=== PATIENT | female | born 1990 | race African-American/Black ===

== ENCOUNTER 2019-11-23 17:24 | Emergency (ER) | payer OTHER, MEDICARE, SELFPAY ==
[2019-11-23 17:25] VITALS: BP 152/91; PULSE 112; RESP 18; TEMP 36.6; O2SAT 98
--- NOTE | 2019-11-23 17:44 | ED.GENADULT ---
HPI - General Adult General Chief complaint: Unspecified Stated complaint: swollen tonsils Time Seen by Provider: 11/23/19 17:26 Source: patient Mode of arrival: ambulatory Limitations: no limitations History of Present Illness HPI narrative: Patient is a 29-year-old female who presents with 2 days duration of sore throat congestion nonproductive cough with tonsillar hypertrophy able to tolerate secretions and liquids with pain is taken ibuprofen with some improvement patient denies sick contacts. Patient denies vomiting or diarrhea. Patient has used ibuprofen with improvement Related Data Allergies Allergy/AdvReac Type Severity Reaction Status Date / Time Penicillins Allergy Mild Unknown Verified 11/23/19 18:13 Review of Systems Review of Systems: All systems reviewed & are unremarkable except as noted in HPI and below PMFSH Past Medical History Medical History Anxiety Anxiety with depression Asthma Depression Morbid obesity Psychiatric pseudoseizure Seizures Surgical History Surgical History H/O section Social History Social History Gender identity (if verbalized by the patient): Female Exam Narrative: Exam Narrative: GENERAL: Ill l-appearing, obese, and in no acute distress. HEAD: Normocephalic, atraumatic. EYES: PERRLA and EOMI. ENT: Nares clear, no rhinorrhea or epistaxis. Mucous membranes moist. Oropharynx with tonsillar hypertrophy exudate no other lesions. Uvula midline. No trismus or drooling NECK: Supple. Anterior adenopathy noted CHEST: Clear to auscultation. No respiratory distress. No wheezes rales or rhonchi HEART: Regular rate and rhythm. No murmur heard. EXTREMITIES: Normal range of motion. No edema. SKIN: Warm, dry, no rash. NEURO: No focal deficits. Alert and oriented x3. Cranial nerves II through XII grossly intact PSYCH: Normal mood and affect. Course Course Emergency Course: Patient in the room at this time feeling better afebrile nontoxic-appearing tolerating p.o. intake Vital Signs Vital signs: Vital Signs Temperature 97.8 F 11/23/19 17:25 Pulse Rate 112 H 11/23/19 17:25 Respiratory Rate 18 11/23/19 17:25 Blood Pressure 152/91 H 11/23/19 17:25 Pulse Oximetry 98 11/23/19 17:25 Temperature 97.8 F 11/23/19 17:25 Pulse Rate 107 H 11/23/19 19:30 Respiratory Rate 20 11/23/19 19:30 Blood Pressure 134/86 11/23/19 19:30 Pulse Oximetry 98 11/23/19 19:30 Medical Decision Making MDM Narrative Medical decision making narrative: Patient with positive strep pharyngitis. There are no focal signs of space occupying lesions that are compromising to the ariway. The floor of the mouth is soft with no signs of Ludwigs Angina. Patient is without trismus or drooling and able to swallow secreations. Patient is felt appropriate for discharge home with dental follow up. Given fluids and IV antibiotics and steroids in the emergency department provided with ENT follow-up and reasons to return Vital Signs Vital Signs: Vital Signs Temperature 97.8 F 11/23/19 17:25 Pulse Rate 112 H 11/23/19 17:25 Respiratory Rate 18 11/23/19 17:25 Blood Pressure 152/91 H 11/23/19 17:25 Pulse Oximetry 98 11/23/19 17:25 Temperature 97.8 F 11/23/19 17:25 Pulse Rate 107 H 11/23/19 19:30 Respiratory Rate 20 11/23/19 19:30 Blood Pressure 134/86 11/23/19 19:30 Pulse Oximetry 98 11/23/19 19:30 Lab Data Result diagrams: 11/23/19 18:22 11/23/19 18:22 Labs: Lab Results 11/23/19 11/23/19 Range/Units 18:22 18:22 WBC 25.2 H (4.5-10.0) K/mm3 RBC 4.93 (4.2-5.4) M/mm3 Hgb 10.5 L (12.0-15.0) g/dL Hct 35.1 L (37.0-47.0) % MCV 71.2 L (80-100) fl MCH 21.3 L (26-34) pg MCHC 29.9 L (32-36) g/dl RDW 16.5 H (11.5-14.5)
[2019-11-23 18:01] VITALS: RESP 22
[2019-11-23] MEDS: SODIUM CHLORIDE 0.9% IV 1,000 ML 999 ML IV CONT ×2 (18:14→19:25)
[2019-11-23] MEDS: CLINDAMYCIN 900 MG/NS 50 ML 900 MG/50 ML PIGGYBACK 50 MG IVPB (18:14)
[2019-11-23 18:30] LABS: Basophils Absolute Auto 0.1 K/mm3 (0.0-0.1); Basophils Percent Auto 0.3 % (0.2-1.2); Hematocrit 35.1 % (37.0-47.0); Hemoglobin 10.5 g/dL (12.0-15.0); Immature Granulocyte Absolute 0.28 K/mm3 (0.00-0.031); Immature Granulocyte Percent A 1.1 % (0-0.5); Lymphocytes Absolute Auto 1.92 K/mm3 (0.9-3.2); Lymphocytes Percent Auto 7.6 % (18.3-44.2); Mean Corpuscular HGB Conc 29.9 g/dl (32-36); Mean Corpuscular Hemoglobin 21.3 pg (26-34); Mean Corpuscular Volume 71.2 fl (80-100); Mean Platelet Volume 11.3 fl (7.4-10.4); Monocytes Absolute Auto 1.6 K/mm3 (0.1-0.6); Monocytes Percent Auto 6.5 % (2.6-8.5); Neutrophils Absolute Auto 21.3 K/mm3 (1.3-6.7); Neutrophils Percent Auto 84.5 % (45.5-73.1); Platelet Count Result 362 k/mm3 (150-375); Red Blood Count 4.93 M/mm3 (4.2-5.4); Red Cell Distribution Width 16.5 % (11.5-14.5); White Blood Count 25.2 K/mm3 (4.5-10.0)
[2019-11-23] MEDS: IBUPROFEN IV 800 MG/200 ML 800 MG/200 ML BAG 400 MG IVPB (18:36)
[2019-11-23 18:37] VITALS: PULSE 112
[2019-11-23 18:38] LABS: Hypochromasia 1+ (NORMAL); Platelet Estimate Adequate (Adequate)
[2019-11-23 18:39] LABS: Ovalocytes 1+ (NORMAL); Stomatocytes 1+ (NORMAL)
[2019-11-23 18:42] LABS: Blood Urea Nitrogen 8 mg/dL (7-17); Calcium 9.2 mg/dL (8.4-10.2); Carbon Dioxide 28 mmol/L (22-30); Chloride 99 mmol/L (98-107); Estimated CRCL calculation 137 ml/min; Estimated Glomerular Filt Rate > 60; Glucose 149 mg/dL (65-105); Potassium 3.6 mmol/L (3.4-5.0); Sodium 135 mmol/L (137-145)
[2019-11-23 19:30] VITALS: BP 134/86; PULSE 107; RESP 20; O2SAT 98
== END 2019-11-23 21:20 | disposition home or self-care (01) ==
PROVIDERS: Emergency Medicine Emergency Medical Services; Emergency Provider Emergency Medicine; PCP Internal Medicine
DX: J02.0 Streptococcal pharyngitis (principal); J45.909 Unspecified asthma, uncomplicated; F41.8 Other specified anxiety disorders; E66.01 Morbid (severe) obesity due to excess calories; Z68.42 Body mass index [BMI] 45.0-49.9, adult
CPT/HCPCS: 36415; 80048; 85025; 87880; 96361; 96365; 96367; 96375; 99284; J0131; J1100; J1741; J7030

== ENCOUNTER → 2020-03-15 17:57 | Outpatient (CLI) | payer OTHER, MEDICARE, SELFPAY ==
--- NOTE | ~2020-03-15 | XR_ITS ---
EXAMINATION: XR ankle RT min 3V INDICATION: Right ankle pain, initial encounter TECHNIQUE: Four views of the right ankle are obtained. COMPARISON: None available FINDINGS: There is an acute, traumatic, closed, oblique fracture of the distal fibula which continues to the medial cortex approximately 1.7 cm above the tibial plafond and. There is mild anterior angul ation at the fracture site. Bone alignment at the ankle is normal. No additional acute osseous abnorm ality is identified. There is soft tissue swelling of ankle. IMPRESSION: 1. Acute fracture of the distal fibula above the level of the tibial plafond. Reviewed, dictated and finalized at location A.
== END ==
PROVIDERS: PCP Internal Medicine; Visit Provider Internal Medicine
DX: M25.471 Effusion, right ankle (principal); S82.831A Other fracture of upper and lower end of right fibula, initial encounter for closed fracture
CPT/HCPCS: 73610

== ENCOUNTER 2020-03-19 02:50 | Outpatient (CLI) | payer OTHER, MEDICARE, SELFPAY ==
[2020-03-19 23:12] LABS: SARS-CoV-2 RNA PCR Negative
== END 2020-03-19 02:51 | disposition home or self-care (01) ==
LOC: ANHCOVIDDT 02:52
PROVIDERS: PCP Internal Medicine; Visit Provider Orthopaedic Surgery
DX: Z01.812 Encounter for preprocedural laboratory examination (principal); Z20.828 Contact with and (suspected) exposure to other viral communicable diseases
CPT/HCPCS: 87635; C9803; U0003

== ENCOUNTER 2020-03-22 01:12 | Day surgery (SDC) | payer OTHER, MEDICARE, SELFPAY ==
[2020-03-18 14:34] VITALS: BMI 44.2
[2020-03-22] VITALS (11 sets, daily range): BP systolic 111–160; BP diastolic 64–103; PULSE 72–96; RESP 10–18; TEMP 36.5–36.8; O2SAT 93–100
--- NOTE | ~2020-03-22 | XR_ITS ---
EXAMINATION: XR surgery orthopedic DATE: 03/22/2020 15:37 INDICATION: ORIF right ankle fracture TECHNIQUE: 3 fluoroscopic spot images of the right ankle were obtained during procedure performed by Dr. Hightower. Radiologist was not present for the imaging or procedure. The amount of fluoroscopy time us ed during this procedure was 1.0 minutes. COMPARISON: None. FINDINGS: Lateral plate and screw fixation of an oblique distal right fibular fracture. A Fibulink syndesmotic repair is incorporated as part of the plate and screw fixation with anchoring screw in the distal tib ial metaphyseal region. Alignment post fixation is near-anatomic with congruent ankle mortise. Visual ized joint spaces are normal. IMPRESSION: 1. Near-anatomic alignment post distal right fibular internal fixation and syndesmotic fixation. See procedure note for further detail. Reviewed, dictated and finalized at location B. IMPRESSION: 1. Near-anatomic alignment post distal right fibular internal fixation and synd esmotic fixation. See procedure note for further detail.
--- NOTE | 2020-03-22 12:32 | WPDANESEPPF ---
Anes - Initial Pre Proc Eval Procedure: Operation Date: 03/22/20 14:00 Proposed Procedures p Open Reduction Internal Fixation Right Ankle Possible Syndesmotic Stabilization - Thai Hightower MD Date/Time: 03/22/20 12:32 Surgeon: Thai Hightower MD Pre Op Diagnosis: Right Ankle Fracture Patient Data Age: 30 Gender: F Height: 5 ft 5.5 in Weight: 122.47 kg Allergies Allergy/AdvReac Type Severity Reaction Status Date / Time Penicillins Allergy Mild Unknown Verified 03/18/20 14:35 Home Medications Medication Instructions Recorded Confirmed Type cetirizine 10 mg tablet 10 mg PO DAILY #90 tablet 07/31/19 03/18/20 Rx etonogestrel 68 mg subdermal 1 implant SUBDERMAL ONCE #1 each 07/31/19 03/18/20 Rx implant mometasone 2 inhalation INHALATION Q12H #1 08/21/19 03/18/20 Rx each clonazepam 0.5 mg tablet 0.75 mg PO DAILY #45 tablet 10/27/19 03/18/20 Rx albuterol sulfate [ProAir HFA] 1 puff INHALATION Q4H PRN 03/18/20 03/18/20 History escitalopram oxalate 10 mg PO DAILY 03/18/20 03/18/20 History Patient hx anesthesia problems: none Family hx anesthesia problems: none PMFSH Past Medical History Medical History Anemia Anxiety Anxiety with depression Asthma Depression Morbid obesity Psychiatric pseudoseizure Seizures Surgical History Surgical History H/O section Family History Family History Grandparent , Age 70's Cardiac Arrest No problems noted. Grandparent , Age 30's Diabetes No problems noted. Grandparent , Age 80's Cardiac Arrest No problems noted. Social History Social History Smoking status: Never smoker Substance use: former Substance use type: marijuana Gender identity (if verbalized by the patient): Female Anes - Eval Final PreProcedure Day of Procedure 03/22/20 12:32 Patient weight: morbidly obese Heart: regular rate and rhythm Lungs: clear to auscultation Airway: Mallampati scale class 1 Neurological: alert and oriented Last oral intake: >/= 8 hours ASA classification: III Emergent: no Anesthetic plan: proceed Anesthesia type and monitoring: general LMA and standard monitoring Informed Consent: The patient's anesthetic plan and its attendant risks and benefits were discussed with the patient/family/POA. Questions were solicited and answers provided to the satisfaction of the patient/family/POA.
[2020-03-22] MEDS: ACETAMINOPHEN 500 MG TABLET 1000 MG PO (12:58)
--- NOTE | 2020-03-22 13:26 | WPDHPUPDATE1 ---
History and Physical Update Update Date/Time: 03/22/20 13:26 History and Physical has been reviewed, including an updated exam of the patient. There are NO changes in the patient's condition. Risks, benefits, and alternatives have been discussed and questions answered. Patient agrees to proceed with procedure.
[2020-03-22] MEDS: KETOROLAC 15 MG/ML VIAL (*BKC) IV PUSH (13:30)
[2020-03-22] MEDS: LACTATED RINGERS 1,000 ML 30 ML IV CONT ×2 (13:30→15:51)
--- NOTE | 2020-03-22 13:50 | WPDANESPNB ---
Anes - Peripheral Nerve Block Date/Time: 03/22/20 13:50 I have discussed with the patient/family/POA the placement of a peripheral nerve block for post-operative pain management, including associated risks, benefits, complications, and side effects. Alternative methods of post-operative analgesia were detailed. Questions were solicited and answers provided to the satisfaction of the patient/family/POA. Time-Out: A pre-procedural Time-Out was completed immediately before starting the procedure and confirmed: Patient Identification, Site, Procedure, Patient Position and the Availability of Requisite Equipment. Clinical Indications: Acute post-operative pain management requested by the operative surgeon. Nerve Block Insertion Note Anes-nerve block: posterior fossa sciatic right and other (saphenous) Patient position: supine Skin prep: chlorhexidine Needle: 22 gauge, stimulating, insulated echogenic needle. Needle length: 120 mm Technique: nerve stimulation lost at (mA) (0.32) Injectate: bupivacaine 0.5% with epi 5 mcg/ml (23cc sciatic and 7cc saphenous) and dexamethasone (mg) (8) Complications: none Procedure start time:: 1345 Procedure end time:: 1352
[2020-03-22] MEDS: ceFAZolin 3 GM/D5W 100 ML 100 ML IVPB (14:03)
--- NOTE | 2020-03-22 16:01 | P.OP_ITS ---
Procedure Note - Detailed Date of procedure: 03/22/20 Pre-op diagnosis: Right Ankle Fracture Right distal fibular fracture with syndesmotic disruption Post-op diagnosis: same Procedure performed: ORIF right distal fibular fracture with syndesmotic stabilization. Description of procedure: The patient was identified and proper site identified. In the preoperative holding area, the anesthesia team performed a right lower leg block. She was then taken to the operating room and transfer to the OR table. After general anesthetic induction and intubation, a nonsterile tourniquet was placed high on right thigh and the right lower extremity was prepped and draped in usual sterile fashion. The extremity was exsanguinated tourniquet was inflated to 300 mmHg remaining up for 60 minutes. Longitudinal incision was made over the distal fibula. Subcutaneous tissue sharply dissected full thickness down to the fibula. Fracture site was identified. It was aligned and then stabilized with the floor hole locking distal fibular plate from the Synthes set. This was done under fluoroscopic visualization. After this was accomplished, the syndesmosis was assessed and noted to be unstable, so a Fibulink device was used for syndesmotic stabilization putting it in under fluoroscopic visualization with the ankle in a neutral position. The syndesmosis was assessed after the device was placed and it was noted to be anatomic reduced as well as stable. The wound was irrigated with sterile antibiotic solution. The deeper layers of the subcutaneous tissue reapproximated with a two 0 strata fix and also to a strata Fix was rajwinder were used for the skin. Sterile dressing was applied. Tourniquet was released. A well-padded stirrup type ankle splint was applied with the ankle in a neutral position. She was transferred back to a patient bed, awakened, extubated and taken to recovery area in stable condition. There were no known intraoperative complications. Estimated blood loss 30 mL. She received perioperative antibiotics. Anesthesia: GLMA Surgeon: Thai Hightower MD Customer Marketing Manager: Katrina Duarte Estimated blood loss (mL): 30 Tourniquet time (min): 60 Drains: No Packing: No Pathology: none sent Complications: No immediate complications Condition: stable Disposition: PACU
== END 2020-03-22 17:50 | disposition home or self-care (01) ==
PROVIDERS: PCP Internal Medicine; Visit Provider Orthopaedic Surgery
PROC: (CPT 27829; principal; 2020-03-22 14:00)
DX: S82.831A Other fracture of upper and lower end of right fibula, initial encounter for closed fracture (principal); S93.431A Sprain of tibiofibular ligament of right ankle, initial encounter; G89.18 Other acute postprocedural pain; W19.XXXA Unspecified fall, initial encounter; F41.8 Other specified anxiety disorders; J45.909 Unspecified asthma, uncomplicated
CPT/HCPCS: 27829; 27792; 64445; 64450; 87635; A9270; C1713; C9803; J0690; J1100; J1885; J2250; J2405; J2704; J3010; J7120; U0003

== ENCOUNTER 2020-04-05 12:34 | Emergency (ER) | payer OTHER, MEDICARE, SELFPAY ==
--- NOTE | ~2020-04-05 | US_ITS ---
EXAMINATION: US venous doppler LE DATE: 04/05/2020 14:00 INDICATION: Right lower limb pain and swelling. TECHNIQUE: Grayscale ultrasound images without and with compression and Doppler ultrasound images of the right lower extremity veins were obtained. COMPARISON: None. FINDINGS: The visualized portions of right common femoral vein, profunda (deep) femoral vein, femoral vein, pop liteal vein, peroneal veins, posterior tibial veins, and greater saphenous vein outflow are patent. IMPRESSION: 1. No deep venous thrombosis. Reviewed, dictated and finalized at location A.
[2020-04-05 12:58] VITALS: BP 138/92; PULSE 88; RESP 16; TEMP 36.6; O2SAT 100
[2020-04-05 13:39] VITALS: BP 127/83; PULSE 100; RESP 16; O2SAT 99
--- NOTE | 2020-04-05 13:41 | ED.EXTPRO ---
HPI - Extremity Problem General Chief complaint: Extremity Problem,Nontraumatic Stated complaint: post-op pain swelling rt leg Time Seen by Provider: 04/05/20 13:36 Source: patient Mode of arrival: wheelchair Limitations: no limitations History of Present Illness HPI Narrative: Patient is a 30-year-old female complaining of right leg pain for the past few days and noticed some increased swelling. Patient had ankle surgery approximately 2 weeks ago done by Dr. Hightower. She called Dr. Hightower office and was advised to come the ER to rule out a blood clot. Denies any chest pain, shortness of breath or fever chills Related Data Home Medications Medication Instructions Recorded Confirmed albuterol sulfate [ProAir HFA] 1 puff INHALATION Q4H PRN 03/18/20 04/01/20 Allergies Allergy/AdvReac Type Severity Reaction Status Date / Time Penicillins Allergy Mild Unknown Verified 04/05/20 13:05 Review of Systems Review of Systems: All systems reviewed & are unremarkable except as noted in HPI and below Constitutional: Constitutional: Denies body ache(s), Denies chills, Denies excessive sweating, Denies fatigue, Denies fever(s), Denies headache(s), Denies lethargy, Denies malaise, Denies weakness and Denies weight loss Eyes: Eyes: Denies blurry vision, Denies change in vision and Denies loss of vision ENT: Denies dizziness, Denies ear discharge, Denies headache(s), Denies lip swelling, Denies epistaxis, Denies nasal congestion, Denies neck pain, Denies throat swelling and Denies tongue swelling Cardiovascular: Cardiovascular: Denies chest pain, Denies chest pain at rest, Denies chest pain with activity, Denies diaphoresis, Denies rapid heart rate, Denies edema, Denies irregular heart rhythm, Denies lightheadedness, Denies palpitations, Denies dyspnea and Denies dyspnea on exertion Respiratory: Respiratory: Denies chest congestion, Denies cough, Denies hemoptysis, Denies dyspnea and Denies dyspnea on exertion Gastrointestinal: Gastrointestinal: Denies abdominal pain, Denies melena, Denies hematochezia, Denies diarrhea, Denies nausea, Denies vomiting and Denies hematemesis Musculoskeletal: Musculoskeletal: Denies abnormal gait, Denies deformity and Denies neck pain Neurologic: Denies Abnormal speech present, Denies confusion, Denies dizziness, Denies headache(s), Denies focal weakness, Denies loss of vision, Denies numbness, Denies Other visual disturbances, Denies Sensory deficit (Neuro) and Denies weakness Psychiatric: Psychiatric: Denies confusion, Denies depression, Denies auditory hallucinations, Denies homicidal ideation and Denies suicidal ideation Endocrine: Endocrine: Denies cold intolerance, Denies excessive sweating, Denies fatigue, Denies heat intolerance and Denies palpitations Hematologic/Lymphatic: Hematologic/Lymphatic: Denies easy bleeding and Denies easy bruising Allergic/Immunologic: Allergic/Immunologic: Denies lip swelling, Denies throat swelling and Denies tongue swelling PMFSH Past Medical History Medical History (Updated 04/05/20 @ 15:47 by Jamir Schneider MD) Anemia Anxiety with depression Asthma Depression Morbid obesity Psychiatric pseudoseizure Seizures Surgical History Surgical History H/O section Family History Family History Grandparent , Age 70's Cardiac Arrest No problems noted. Grandparent , Age 30's Diabetes No problems noted. Grandparent , Age 80's Cardiac Arrest No problems noted. Social History Social History Smoking status: Never smoker Substance use: former Substance use type: marijuana Gender identity (if verbalized by the patient): Female Exam Const: General: cooperative, healthy appearing, comfortable, no acute distr
== END 2020-04-05 15:40 | disposition home or self-care (01) ==
PROVIDERS: Emergency Provider Emergency Medicine; PCP Internal Medicine
DX: M79.604 Pain in right leg (principal); J45.909 Unspecified asthma, uncomplicated; E66.9 Obesity, unspecified; Z68.41 Body mass index [BMI] 40.0-44.9, adult; Z98.890 Other specified postprocedural states
CPT/HCPCS: 29515; 93971; 99284

== ENCOUNTER 2020-08-27 11:00 | Outpatient (RCR) | payer OTHER, MEDICARE, SELFPAY ==
--- NOTE | 2020-07-30 15:53 | PTOPEVAL ---
PHYSICAL THERAPY EVALUATION Thank you for referring Dante Macias to [facility].? Dante was evaluated with the dx of right ankle instability after fracture. The patient is scheduled to be seen for therapy? 1 x/week for 4 weeks. Please review, sign, date and return this plan of care PRATEEK. I agree with and certify that the following plan of care is medically necessary. Referring Physician Date Attending Provider: Thai Hightower MD *PT Outpatient Evaluation Start: 07/19/20 08:30 Freq: Status: Active Protocol: Document 07/30/20 14:41 MLV (Rec: 07/30/20 15:41 [facility] [id number]) Assessment Status Evaluation Evaluation Information Problem Diagnosis right fibular fx;ORIF Onset 03/07/2020 Cause fell down the stairs Additional Evaluation Detail The patient fell down the stairs but thought it was just sprained. The patient had xrays 1 week after the injury. The patient had an ORIF March 22, 2020 right ankle and was in a boot for 8 weeks. The patient saw MD and was ordered to try therapy due to a mild limp with gait. The patient reports still having pain at right lateral ankle. Subjective Information The patient is a stay at home Query Text:As Reported By Patient/ mom. Family Diagnostic Tests X-Rays For This Problem Yes: last xray; healing well Previous Treatments Previous Treatments For This Problem none Pain Assessment Timing of Pain Assessment Timing of Pain Assessment Assessment Pain Scale Pain Scale Used Numeric (1 - 10) Self Report Pain Assessment Right Ankle(s) Reported Pain Level 1 Pain Description Aching,Pressure Pain Frequency Acute Greatest Pain Intensity 5 Pain Aggravating Factors Walking,Weight Bearing/ Standing Pain Behaviors Limping Pain Score Pain Score 1: Self Report Interventions Used Interventions Used By Clinicians Education,Exercise,Ice Pain Relief Interventions Used By Elevation,Inactivity/Rest, Patient Position Change Other Alleviating Interventions tylenol prn Lower Extremity Range of Motion General Lower Extremity Range of Motion Gross Lower Extremity Range of Motion ankle active motion: left DF 7, Comments PF 70, inversion 44, eversion 30 degrees; right ankle DF 7, PF 58,
--- NOTE | 2020-08-27 11:45 | PTOPEVAL ---
PHYSICAL THERAPY DISCHARGE Thank you for referring Dante Macias to [facility].? The patient has been seen for therapy? 5 visits for the dx of right ankle fx. The pt has met all goals except for pain goal; patient has peaked with skilled PT need. DC PT. Please review, sign, date and return this plan of care. I agree with and certify the following plan of care. Referring Physician Date Attending Provider: Thai Hightower MD *PT Outpatient Discharge Start: 07/19/20 08:30 Freq: Status: Active Protocol: Document 08/27/20 11:00 MLV (Rec: 08/27/20 11:22 [facility] [id number]) Assessment Status Discharge Evaluation Information Problem Diagnosis right fibular fx;ORIF Onset 03/07/2020 Cause fell down the stairs Additional Evaluation Detail Patient reports pain continues at right ankle, mainly in the achilles tendon. Patient denies trouble with current exercises and plans to continue them at home after DC today. Pain Assessment Timing of Pain Assessment Timing of Pain Assessment Assessment Pain Scale Pain Scale Used Numeric (1 - 10) Self Report Pain Assessment Right Ankle(s) Reported Pain Level 5 Pain Description Aching Pain Frequency Intermittent Pain Aggravating Factors Walking,Weight Bearing/ Standing Pain Behaviors None Pain Score Pain Score 5: Self Report Interventions Used Interventions Used By Clinicians Education Pain Relief Interventions Used By Heat,Inactivity/Rest Patient Other Alleviating Interventions ibuprofen/tylenol prn Lower Extremity Range of Motion General Lower Extremity Range of Motion Gross Lower Extremity Range of Motion ankle active motion: left DF Comments 10, PF 78, inversion 44, eversion 30 degrees; right ankle DF 8, PF 65, inversion 42, inversion 28 degrees. Lower Extremity Muscle Strength Testing General Lower Extremity Strength Reason Not Measured WNL/Left,WNL/Right Gross Lower Extremity Strength fatigue at right ankle with 2x 15 reps of blue tband resisted exercises. Eccentric control of motions improved with DF, ever, inver. Palpation Assessment Palpation Palpation remains non tender to pressure at ankle; no notable swelling
== END 2020-08-27 13:33 | disposition home or self-care (01) ==
LOC: ANHPT 11:00
PROVIDERS: PCP Internal Medicine; Visit Provider Orthopaedic Surgery
DX: S82.891D Other fracture of right lower leg, subsequent encounter for closed fracture with routine healing (principal)
CPT/HCPCS: 97110; 97161

== ENCOUNTER 2020-09-21 13:24 | Outpatient (CLI) | payer OTHER, MEDICARE, SELFPAY | END 2020-09-21 13:25 | disposition home or self-care (01) | LOC: ANHCOVIDVC 13:24 | PROVIDERS: PCP Internal Medicine | DX: Z23 Encounter for immunization (principal) | CPT/HCPCS: 0001A; 91300 ==

== ENCOUNTER 2020-10-12 13:17 | Outpatient (CLI) | payer OTHER, MEDICARE, SELFPAY | END 2020-10-12 13:18 | disposition home or self-care (01) | LOC: ANHCOVIDVC 13:17 | PROVIDERS: PCP Internal Medicine | DX: Z23 Encounter for immunization (principal) | CPT/HCPCS: 0002A; 91300 ==

== ENCOUNTER 2021-06-29 14:30 | Outpatient (RCR) | payer OTHER, MEDICARE, SELFPAY ==
[2021-04-12 12:42] VITALS: BMI 47.2
== END 2021-07-11 23:59 | disposition home or self-care (01) ==
LOC: ANHDMC 14:30
PROVIDERS: PCP Internal Medicine; Referring Provider Internal Medicine; Visit Provider Internal Medicine
DX: E11.9 Type 2 diabetes mellitus without complications (principal); Z71.3 Dietary counseling and surveillance; Z71.89 Other specified counseling
CPT/HCPCS: 97804; 99199; G0108; G0109

== ENCOUNTER 2021-10-21 17:35 | Outpatient (CLI) | payer OTHER, MEDICARE, SELFPAY ==
--- NOTE | ~2021-10-21 | XR_ITS ---
EXAMINATION: XR ankle RT 2V DATE: 10/21/2021 17:58 INDICATION: Pain in right ankle and joints of right foot. TECHNIQUE: 2 views of right ankle were obtained. COMPARISON: Right ankle radiographs 06/17/2020, 03/22/2020 FINDINGS: Bone alignment is normal. No fracture. There is an osteochondral lesion of medial talar dom e. There is internal fixation of distal fibula with plate and screws. There is a screw in distal tibi al metaphysis, likely for stabilization of the tibiofibular syndesmosis. IMPRESSION: 1. Osteochondral lesion of medial talar dome. Reviewed, dictated and finalized at location A.
== END 2021-10-21 17:36 ==
PROVIDERS: PCP Family Medicine; Visit Provider Family Medicine
DX: M25.571 Pain in right ankle and joints of right foot (principal); M79.671 Pain in right foot; M89.9 Disorder of bone, unspecified
CPT/HCPCS: 73600

== ENCOUNTER 2021-10-26 09:02 | Emergency (ER) | payer OTHER, MEDICARE, SELFPAY ==
--- NOTE | ~2021-10-26 | CT_ITS ---
EXAMINATION: CT abdomen pelvis wo con DATE: 10/26/2021 12:08 INDICATION: Left flank pain. Constipation. TECHNIQUE: Computed tomography (CT) of the abdomen and pelvis was performed without intravenous contr ast. The dose-length product was 1466.66 mGy-cm. Automated exposure control and iterative reconstruct ion technique were employed. COMPARISON: None. FINDINGS: Lung bases are unremarkable. Heart size normal. No significant pleural or pericardial effus ion. There is a 3.6 cm left ovarian cyst. Nonobstructive bowel gas pattern. Small fat-containing umbi lical hernia. No significant vascular abnormality. No lymphadenopathy. No free air or free fluid. The liver, spleen, pancreas, adrenal glands and kidneys are unremarkable. No acute osseous abnormalit y. IMPRESSION: 1. Left ovarian cyst measuring up to 3.6 cm. Reviewed, dictated and finalized at location A.
[2021-10-26 09:10] VITALS: BP 137/92; PULSE 98; RESP 18; TEMP 36.4; O2SAT 100
[2021-10-26 11:01] LABS: Basophils Percent Auto 0.3 % (0.2-1.2); Eosinophils Absolute Auto 0.1 K/mm3 (0-0.3); Eosinophils Percent Auto 1.2 % (0-4.4); Hematocrit 34.4 % (37.0-47.0); Immature Granulocyte Absolute 0.04 K/mm3 (0.00-0.031); Immature Granulocyte Percent A 0.4 % (0-0.5); Lymphocytes Absolute Auto 2.33 K/mm3 (0.9-3.2); Lymphocytes Percent Auto 25.8 % (18.3-44.2); Mean Corpuscular HGB Conc 29.1 g/dl (32-36); Mean Corpuscular Hemoglobin 20.5 pg (26-34); Mean Corpuscular Volume 70.6 fl (80-100); Monocytes Absolute Auto 0.5 K/mm3 (0.1-0.6); Monocytes Percent Auto 5.2 % (2.6-8.5); Neutrophils Percent Auto 67.1 % (45.5-73.1); Platelet Count Result 421 k/mm3 (150-375); Red Blood Count 4.87 M/mm3 (4.2-5.4); Red Cell Distribution Width 17.1 % (11.5-14.5)
[2021-10-26 11:29] LABS: Appearance Urine Slightly Cloudy (Clear); Bilirubin Urine Negative (Negative); Blood Urine Negative (Negative); Color Urine Yellow (Yellow); Glucose Urine UA Negative (Negative); Ketones Urine Negative (Negative); Leukocyte Esterase Ur Negative LEU/UL (Negative); Nitrate Urine Negative (Negative); Protein Urine Negative (Negative); Specific Grav Ur 1.015 (1.001-1.035); Urobilinogen Urine 0.2 mg/dL (<2.0); pH Urine 6.5 (5.0-9.0)
[2021-10-26 11:31] LABS: Bacteria Urine Trace /hpf; RBC Urine 0-2 /hpf (0-2); Squamous Epithelial Cell Urine Few /hpf (Few); WBC Urine 0-3 /hpf
[2021-10-26 11:32] LABS: Add Urine Microscopic? YES
[2021-10-26 11:36] LABS: Alanine Aminotransferase 13 U/L (6-35); Alkaline Phosphatase 97 U/L (38-126); Anion Gap 9 mmol/L (8-16); Aspartate Amino Transferase 25 U/L (14-36); Bilirubin,Total 0.1 mg/dL (0.2-1.3); Blood Urea Nitrogen 10 mg/dL (7-17); Calcium 8.7 mg/dL (8.4-10.2); Carbon Dioxide 27 mmol/L (22-30); Chloride 102 mmol/L (98-107); Estimated CRCL calculation 146 ml/min; Estimated Glomerular Filt Rate > 60; Glucose 117 mg/dL (65-110); Potassium 4.1 mmol/L (3.4-5.0); Sodium 138 mmol/L (137-145)
--- NOTE | 2021-10-26 12:05 | ED.GENADULT ---
HPI - General Adult General Chief complaint: Back Pain/Injury Stated complaint: L flank pain x 2 weeks Time Seen by Provider: 10/26/21 11:20 History of Present Illness HPI narrative: 31-year-old female presents to the emergency room with left lower back left flank left upper quadrant belly pain intermittently for 2 weeks. Patient states that she has been constipated for up to 3 weeks, reports small random bowel movements. Patient is also complaining of nausea Related Data Allergies Allergy/AdvReac Type Severity Reaction Status Date / Time Penicillins Allergy Mild Unknown Verified 10/26/21 11:20 Review of Systems Review of Systems: CONSTITUTIONAL: Denies fever, chills, or sweats. EYES: Denies visual changes, redness, or discharge. ENT: Denies rhinorrhea, congestion, sore throat, or otalgia. CARDIOVASCULAR: Denies chest pain, palpitations, or edema. RESPIRATORY: Denies cough or dyspnea. GASTROINTESTINAL: Reports left flank pain, nausea GENITOURINARY: Denies dysuria or hematuria. SKIN: Denies rash or itching. MUSCULOSKELETAL: Denies back pain, joint pain, or myalgia. NEUROLOGIC: Denies headache, numbness, dizziness, or weakness. PSYCHIATRIC: Denies anxiety or depression. [facility] Past Medical History Medical History Anemia Anxiety with depression Asthma BMI 50.0-59.9, adult Bronchitis Depression Morbid obesity Nexplanon insertion 05/25/15 07/04/18 Nexplanon removal 07/04/18 Psychiatric pseudoseizure Seizures Surgical History Surgical History Closed right ankle fracture Surgical repair March 2020 H/O section 03/12/2015 arrest of dilation History of orthopedic surgery right leg Family History Family History Grandparent Diabetes mellitus Maternal Grandmother Thyroid disorder paternal grandmother Heart disease Acute myocardial infarction Father Hypertension Sibling Hypertension sister Mother Diabetes mellitus Other Breast cancer paternal aunt Acute myocardial infarction Heart disease Social History Social History Smoking status: Never smoker Alcohol intake: current Drinks per week: 1 Substance use: current Substance use type: marijuana Other substance usage details: Edibles 1-2 times per month Additional living arrangements comments: Additional occupation/education comments: stay at home mom Gender identity (if verbalized by the patient): Female Sexual Orientation (if Verbalized by the Patient): Bisexual Spiritual care concerns: No Exam Narrative: GENERAL: Well-appearing, well-nourished, and in no acute distress. HEAD: Normocephalic, atraumatic. EYES: PERRLA and EOMI. CHEST: Clear to auscultation. No respiratory distress. No wheezes rales or rhonchi HEART: Regular rate and rhythm. No murmur heard. Normal peripheral pulses. ABDOMEN: Soft, morbidly obese, mild left flank pain without CVA tenderness, left upper quadrant tenderness, hypoactive bowel sounds EXTREMITIES: Normal range of motion. No edema. SKIN: Warm, dry, no rash. NEURO: No focal deficits. Alert and oriented x3. PSYCH: Normal mood and affect. Course Vital Signs Vital signs: Vital Signs Temperature 36.4 C 10/26/21 09:10 Pulse Rate 98 10/26/21 09:10 Respiratory Rate 18 10/26/21 09:10 Blood Pressure 137/92 H 10/26/21 09:10 Pulse Oximetry 100 10/26/21 09:10 Temperature 36.4 C 10/26/21 09:10 Pulse Rate 98 10/26/21 09:10 Respiratory Rate 18 10/26/21 09:10 Blood Pressure 137/92 H 10/26/21 09:10 Pulse Oximetry 100 10/26/21 09:10 Medical Decision Making MDM Narrative Medical decision making narrative: 31-year-old female presented to the emergency room with complaints of left upper abdo
[2021-10-26] MEDS: ONDANSETRON INJ 4 MG/2 ML VIAL IV PUSH (12:33)
[2021-10-26] MEDS: SODIUM CHLORIDE 0.9% IV 1,000 ML 999 ML IV CONT (12:33)
[2021-10-26] MEDS: MAGNESIUM CITRATE 300 ML BTL PO (13:00)
== END 2021-10-26 13:06 | disposition home or self-care (01) ==
PROVIDERS: Emergency Medicine; Emergency Provider Nurse Practitioner Family; PCP Family Medicine
DX: K59.00 Constipation, unspecified (principal); N83.202 Unspecified ovarian cyst, left side
CPT/HCPCS: 36415; 74176; 80053; 81001; 81025; 85025; 96361; 96374; 99284; A9270; J2405; J7030

== ENCOUNTER 2021-11-09 09:15 | Outpatient (RCR) | payer OTHER, MEDICARE, SELFPAY | END 2021-11-09 10:08 | disposition home or self-care (01) | LOC: ANHDMC 09:15 | PROVIDERS: PCP Internal Medicine; Referring Provider Internal Medicine; Visit Provider Internal Medicine | DX: E11.9 Type 2 diabetes mellitus without complications (principal); Z71.89 Other specified counseling | CPT/HCPCS: G0108; G0109 ==

== ENCOUNTER 2022-03-03 10:45 | Outpatient (CLI) | payer OTHER, MEDICARE, SELFPAY ==
[2022-03-03 18:23] LABS: Basophils Percent Auto 0.4 % (0.2-1.2); Eosinophils Absolute Auto 0.2 K/mm3 (0-0.3); Eosinophils Percent Auto 1.7 % (0-4.4); Hemoglobin 9.9 g/dL (12.0-15.0); Immature Granulocyte Absolute 0.04 K/mm3 (0.00-0.031); Immature Granulocyte Percent A 0.4 % (0-0.5); Lymphocytes Absolute Auto 3.29 K/mm3 (0.9-3.2); Mean Corpuscular HGB Conc 28.3 g/dl (32-36); Mean Corpuscular Hemoglobin 20.3 pg (26-34); Mean Corpuscular Volume 71.7 fl (80-100); Mean Platelet Volume 11.2 fl (7.4-10.4); Monocytes Absolute Auto 0.7 K/mm3 (0.1-0.6); Monocytes Percent Auto 6.7 % (2.6-8.5); Neutrophils Absolute Auto 5.5 K/mm3 (1.3-6.7); Neutrophils Percent Auto 56.8 % (45.5-73.1); Platelet Count Result 475 k/mm3 (150-375); Red Blood Count 4.88 M/mm3 (4.2-5.4); Red Cell Distribution Width 17.6 % (11.5-14.5); White Blood Count 9.7 K/mm3 (4.5-10.0)
[2022-03-03 18:56] LABS: Cholesterol 174 mg/dL (0-200); HDL Direct 31 mg/dL; Triglycerides 132 mg/dL (<150)
[2022-03-03 19:07] LABS: LDL Cholesterol Direct 111 mg/dL
[2022-03-03 19:54] LABS: Platelet Estimate Increased (Adequate)
[2022-03-03 19:55] LABS: Anisocytosis 1+ (NORMAL); Hypochromasia 2+ (NORMAL); Microcytosis 1+ (NORMAL); Schistocytes None Seen (NORMAL)
[2022-03-03 20:00] LABS: Iron 26 ug/dL (37-170)
[2022-03-03 20:05] LABS: Hemoglobin A1C 6.2 % (<5.7)
[2022-03-03 20:10] LABS: Percent Iron Saturation 7 % (20-50)
== END 2022-03-03 10:46 | disposition home or self-care (01) ==
PROVIDERS: PCP Family Medicine; Visit Provider Family Medicine
DX: D50.9 Iron deficiency anemia, unspecified (principal); Z13.220 Encounter for screening for lipoid disorders; E11.9 Type 2 diabetes mellitus without complications
CPT/HCPCS: 36415; 80061; 82728; 83036; 83540; 83550; 85025

== ENCOUNTER 2022-06-16 14:37 | Outpatient (CLI) | payer OTHER, MEDICARE, SELFPAY ==
[2022-06-16 20:01] LABS: Basophils Percent Auto 0.4 % (0.2-1.2); Eosinophils Absolute Auto 0.1 K/mm3 (0-0.3); Eosinophils Percent Auto 1.2 % (0-4.4); Hematocrit 37.9 % (37.0-47.0); Immature Granulocyte Absolute 0.04 K/mm3 (0.00-0.031); Immature Granulocyte Percent A 0.4 % (0-0.5); Lymphocytes Absolute Auto 3.12 K/mm3 (0.9-3.2); Lymphocytes Percent Auto 34.1 % (18.3-44.2); Mean Corpuscular Hemoglobin 21.8 pg (26-34); Mean Corpuscular Volume 75.2 fl (80-100); Mean Platelet Volume 11.7 fl (7.4-10.4); Monocytes Absolute Auto 0.6 K/mm3 (0.1-0.6); Monocytes Percent Auto 6.3 % (2.6-8.5); Neutrophils Absolute Auto 5.3 K/mm3 (1.3-6.7); Neutrophils Percent Auto 57.6 % (45.5-73.1); Platelet Count Result 407 k/mm3 (150-375); Red Blood Count 5.04 M/mm3 (4.2-5.4); Red Cell Distribution Width 20.7 % (11.5-14.5); White Blood Count 9.1 K/mm3 (4.5-10.0)
[2022-06-16 20:06] LABS: Iron 34 ug/dL (37-170)
[2022-06-16 20:15] LABS: Percent Iron Saturation 11 % (20-50)
[2022-06-16 20:18] LABS: Hemoglobin A1C 7.1 % (<5.7)
[2022-06-17 20:17] LABS: Alanine Aminotransferase 12 U/L (6-35); Alkaline Phosphatase 99 U/L (38-126); Anion Gap 8 mmol/L (8-16); Aspartate Amino Transferase 15 U/L (14-36); Bilirubin,Total 0.2 mg/dL (0.2-1.3); Blood Urea Nitrogen 11 mg/dL (7-17); Calcium 9.2 mg/dL (8.4-10.2); Carbon Dioxide 24 mmol/L (22-30); Chloride 107 mmol/L (98-107); Estimated Glomerular Filt Rate > 60; Glucose 174 mg/dL (65-110); Potassium 4.5 mmol/L (3.4-5.0); Sodium 139 mmol/L (137-145)
== END 2022-06-16 14:38 | disposition home or self-care (01) ==
LOC: ANHGOSHLAB 14:39
PROVIDERS: PCP Family Medicine; Visit Provider Family Medicine
DX: D50.9 Iron deficiency anemia, unspecified (principal); R53.83 Other fatigue; R68.89 Other general symptoms and signs; E11.9 Type 2 diabetes mellitus without complications; Z13.228 Encounter for screening for other metabolic disorders
CPT/HCPCS: 36415; 80053; 82728; 83036; 83540; 83550; 85025

== ENCOUNTER 2022-09-29 18:38 | Emergency (ER) | payer OTHER, MEDICARE, SELFPAY ==
[2022-09-29 18:41] VITALS: BP 148/95; PULSE 101; RESP 17; TEMP 36.5; O2SAT 100
[2022-09-29 19:17] LABS: Strep Group A RT-PCR NOT DETECTED (Negative)
--- NOTE | 2022-09-29 19:35 | ED.URI ---
HPI - URI/Sore Throat General Chief Complaint: Upper Respiratory Infection Stated Complaint: swollen tonsils Time Seen by Provider: 09/29/22 19:00 History of Present Illness HPI Narrative: Patient is a 32-year-old female presenting with swollen tonsils. Patient states that she has suffered from recurrent tonsillar infections over the last several years. States that her tonsils are very large at baseline. States that for the last several days she has had a sore throat and her left tonsil has gotten a bit bigger. States that she called her PCP today but they were unable to get in. Patient also reports some nasal congestion. She denies headaches, fevers, chest pain, shortness of breath, abdominal pain, nausea or vomiting, diarrhea, rashes, leg swelling. Related Data Allergies Allergy/AdvReac Type Severity Reaction Status Date / Time Penicillins Allergy Mild Unknown Verified 09/29/22 18:39 Review of Systems Review of Systems: All systems reviewed & are unremarkable except as noted in HPI and below PMFSH Past Medical History Medical History Anemia Anxiety with depression Asthma BMI 50.0-59.9, adult Bronchitis Depression Encounter for removal and reinsertion of Nexplanon nexplanon removal / reinsertion 03/29/2022 Morbid obesity Nexplanon insertion 05/25/15 07/04/18 Nexplanon removal 07/04/18 Psychiatric pseudoseizure Seizures Surgical History Surgical History Closed right ankle fracture Surgical repair March 2020 H/O section 03/12/2015 arrest of dilation History of orthopedic surgery right leg Family History Family History Grandparent Diabetes mellitus Maternal Grandmother Thyroid disorder paternal grandmother Heart disease Acute myocardial infarction Father Hypertension Sibling Hypertension sister Mother Diabetes mellitus Other Breast cancer paternal aunt Acute myocardial infarction Heart disease Social History Social History Smoking status: Never smoker Alcohol intake: current Drinks per week: 1 Substance use: current Substance use type: marijuana Other substance usage details: Edibles 1-2 times per month Lack of Transportation: No Lack of Food: Never True Current Housing: I Have Housing Concerned About Future Housing: No Difficulty Paying Gas/Electric Bills: No Difficulty Paying for Meds: No Currently Unemployed: No Education: High School Diploma/GED Difficulty w/ Childcare or Family Care: No Living arrangements: with family Additional living arrangements comments: Occupation/Education: unemployed Additional occupation/education comments: stay at home mom Gender identity (if verbalized by the patient): Female Sexual Orientation (if Verbalized by the Patient): Bisexual Spiritual care concerns: No Exam Narrative: GENERAL: Well-appearing, well-nourished, and in no acute distress. HEAD: Normocephalic, atraumatic. EYES: PERRLA and EOMI. ENT: + Nasal congestion, + bilateral tonsillar hypertrophy, left slightly greater than right, no exudates or erythema noted, airway intact, handling secretions well NECK: Supple. CHEST: Clear to auscultation. No respiratory distress. HEART: Regular rate and rhythm. ABDOMEN: Soft, nontender, nondistended EXTREMITIES: Normal range of motion. No edema. SKIN: Warm, dry, no rash. NEURO: No focal deficits. Alert and oriented x3. PSYCH: Normal mood and affect. Course Vital Signs Vital signs: Vital Signs Temperature 97.7 F 09/29/22 18:41 Pulse Rate 101 H 09/29/22 18:41 Respiratory Rate 17 09/29/22 18:41 Blood Pressure 148/95 H 09/29/22 18:41 Pulse Oximetry 100 09/29/22 18:41 Oxygen Delivery Room Air 04
== END 2022-09-29 20:25 | disposition home or self-care (01) ==
PROVIDERS: Emergency Medicine; Emergency Provider Emergency Medicine; PCP Family Medicine
DX: J02.9 Acute pharyngitis, unspecified (principal)
CPT/HCPCS: 87651; 99283; 99284

== ENCOUNTER 2022-12-15 14:44 | Outpatient (CLI) | payer OTHER, MEDICARE, SELFPAY ==
--- NOTE | 2022-12-15 15:08 | ECG_ITS ---
Measurements Intervals [place] Rate: 70 P: 22 TX: 162 QRS: 45 QRSD: 85 T: 11 QT: 386 QTc: 419 Interpretive Statements SINUS RHYTHM RSR' IN V1 OR V2, PROBABLY NORMAL VARIANT NONSPECIFIC T-WAVE ABNORMALITY- ANT/INF LEADS BORDERLINE ECG NO PREVIOUS ECG AVAILABLE FOR COMPARISON Electronically Signed On 12-15-2022 16:13:18 CDT by Kennedy Freed D.O.
[2022-12-15 15:29] LABS: Alanine Aminotransferase 16 U/L (6-35); Albumin Level 4.2 g/dL (3.5-5.1); Alkaline Phosphatase 98 U/L (38-126); Anion Gap 9 mmol/L (8-16); Aspartate Amino Transferase 19 U/L (14-36); Bilirubin,Total 0.2 mg/dL (0.2-1.3); Blood Urea Nitrogen 10 mg/dL (7-17); Calcium 9.1 mg/dL (8.4-10.2); Carbon Dioxide 25 mmol/L (22-30); Chloride 102 mmol/L (98-107); Estimated Glomerular Filt Rate > 60; Glucose 138 mg/dL (65-110); Potassium 3.9 mmol/L (3.4-5.0); Sodium 136 mmol/L (137-145)
[2022-12-15 16:23] LABS: Iron 41 ug/dL (37-170)
[2022-12-15 16:33] LABS: Percent Iron Saturation 13 % (20-50)
[2022-12-15 16:35] LABS: Basophils Percent Auto 0.4 % (0.2-1.2); Eosinophils Absolute Auto 0.1 K/mm3 (0-0.3); Hematocrit 37.4 % (37.0-47.0); Hemoglobin 11.7 g/dL (12.0-15.0); Immature Granulocyte Absolute 0.03 K/mm3 (0.00-0.031); Immature Granulocyte Percent A 0.3 % (0-0.5); Lymphocytes Absolute Auto 3.06 K/mm3 (0.9-3.2); Lymphocytes Percent Auto 31.9 % (18.3-44.2); Mean Corpuscular HGB Conc 31.3 g/dl (32-36); Mean Corpuscular Hemoglobin 24.8 pg (26-34); Mean Corpuscular Volume 79.2 fl (80-100); Mean Platelet Volume 11.4 fl (7.4-10.4); Monocytes Absolute Auto 0.6 K/mm3 (0.1-0.6); Monocytes Percent Auto 6.2 % (2.6-8.5); Neutrophils Absolute Auto 5.8 K/mm3 (1.3-6.7); Neutrophils Percent Auto 60.2 % (45.5-73.1); Platelet Count Result 421 k/mm3 (150-375); Red Blood Count 4.72 M/mm3 (4.2-5.4); Red Cell Distribution Width 15.8 % (11.5-14.5); White Blood Count 9.6 K/mm3 (4.5-10.0)
[2022-12-15 16:38] LABS: Hemoglobin A1C 7.4 % (<5.7)
== END 2022-12-15 14:45 | disposition home or self-care (01) ==
PROVIDERS: PCP Family Medicine; Visit Provider Anesthesiology
DX: E11.9 Type 2 diabetes mellitus without complications (principal); D50.9 Iron deficiency anemia, unspecified; R53.83 Other fatigue; Z13.228 Encounter for screening for other metabolic disorders; Z01.818 Encounter for other preprocedural examination
CPT/HCPCS: 36415; 80053; 82728; 83036; 83540; 83550; 85025; 93005

== ENCOUNTER 2022-12-22 04:07 | Day surgery (SDC) | payer OTHER, MEDICARE, SELFPAY ==
[2022-12-13 15:25] VITALS: BMI 50.8
--- NOTE | 2022-12-13 15:33 | PC.NURSE ---
Report to the Outpatient Waiting Room, entrance under the green pavilion located off [facility], at time _0730_ on date _12/22/22_. Planned Procedure Time: _0930_. Time changes happen often and if your time is changed the preop area will call you the afternoon before. - You and your visitor will be asked to self-screen and do not enter if you have any COVID symptoms. - A mask is optional within the hospital at this time. Patients may have clear liquids (water, carbonated beverages, clear teas, apple juice) until 3 hours prior to surgery with a maximum of 20 ounces. - No food from midnight until time of surgery - Infants may have breast milk until 4 hours before surgery, infant formula 6 hours prior to surgery. - Children will be allowed to drink immediately following surgery. If applicable, please bring a bottle or sippy cup to assist with drinking. Juice, water, soda, and popsicles are readily available. For infants on formula, please bring formula the day of surgery. Pacifiers are allowed. Take the following medications with a SIP of water the morning of surgery: ___INHALER, CLONAZEPAM,ESCITALIPRAM DO NOT STOP ANY OF YOUR OTHER PRESCRIPTION MEDICATIONS PRIOR TO SURGERY ?EXCEPT THE FOLLOWING Medications to discontinue per physician NONE Date to take last dose Please no make-up, nail cook islander, hairspray, perfume, deodorant, or body powder the day of surgery. No jewelry (including any body piercings) or valuables the day of surgery, leave them at home. Please take a shower or bath the night before, or the morning of, surgery with an antibacterial soap. Wear comfortable, loose fitting clothing. Children are encouraged to wear pajamas. - Jewelry must be removed prior to entering the operating room. Rings and piercings that are not removed may be cut off. - The hospital will not accept responsibility for valuables. - Please leave all valuables, including medications, at home the day of surgery. If you are going home after surgery, a licensed dedicated regional driver must drive you home. - NO public transportation without another adult if you receive anesthesia. - We recommend that an adult stay with you for 24 hours following discharge. - We also recommend that you do not drive, make important decision, drink alcoholic beverages, or take any drugs that were not prescribed by your health care provider for at least 24 hours after your discharge time. For Pediatric surgeries, we recommend two adults accompany the child home. Follow any additional instructions given to you from your surgeon. If you or anyone in your household have experienced Covid symptoms in the past week, please notify your surgeon or the nurse liaison at the phone number below for possible testing. Telephone instructions given to _PATIENT_and asked if any additional questions and then verbalized understanding. Patient advised to call surgeon office or pre surgery nurse liaison [phone] if any additional questions.
--- NOTE | 2022-12-21 09:15 | PM.IMHP ---
H&P: HPI History of Present Illness Date/Time: 12/21/22 09:15 Chief Complaint: chronic tonsillitis Recurrent tonsillitis, sleep disorder breathing Narrative: planned procedure Review of Systems Review of Systems: All systems reviewed & are unremarkable except as noted in HPI and below PMFSH Past Medical History Medical History Acute infective tonsillitis Anemia Anxiety with depression Asthma BMI 50.0-59.9, adult Bronchitis Depression Encounter for removal and reinsertion of Nexplanon nexplanon removal / reinsertion 03/29/2022 Morbid obesity Nexplanon insertion 05/25/15 07/04/18 Nexplanon removal 07/04/18 Psychiatric pseudoseizure Seizures Surgical History Surgical History Closed right ankle fracture Surgical repair March 2020 H/O section 03/12/2015 arrest of dilation History of orthopedic surgery right leg Family History Family History Grandparent Diabetes mellitus Maternal Grandmother Thyroid disorder paternal grandmother Heart disease Acute myocardial infarction Father Hypertension Sibling Hypertension sister Mother Diabetes mellitus Other Breast cancer paternal aunt Acute myocardial infarction Heart disease Social History Social History Social History: Caffeine-daily Smoking status: Never smoker Alcohol intake: current Drinks per week: 1 Alcohol use details: social Substance use: current Substance use type: other Other substance usage details: EDIBLES TWICE A YEAR Lack of Transportation: No Lack of Food: Never True Current Housing: I Have Housing Concerned About Future Housing: No Difficulty Paying Gas/Electric Bills: No Difficulty Paying for Meds: No Currently Unemployed: No Education: High School Diploma/GED Difficulty w/ Childcare or Family Care: No Living arrangements: with family Additional living arrangements comments: Occupation/Education: unemployed Additional occupation/education comments: stay at home mom Gender identity (if verbalized by the patient): Female Sexual Orientation (if Verbalized by the Patient): Bisexual Spiritual care concerns: No Meds Home Medications and Allergies Home Medications Medication Instructions Recorded Confirmed Type cetirizine 10 mg tablet 10 mg PO DAILY #90 tabs 07/31/19 12/15/22 Rx etonogestrel 68 mg subdermal 1 implant subdermal ONCE #1 ea 07/31/19 12/15/22 Rx implant (Nexplanon) albuterol sulfate 90 mcg/actuation 1 puff inhalation Q4H PRN 09/29/20 12/15/22 Rx aerosol inhaler (ProAir HFA) Shortness Of Breath #8.5 grams mometasone 220 mcg/actuation(60 220 mcg inhalation Q12H asthma #3 07/19/21 12/15/22 Rx doses) breath activated powder ea inhaler (Asmanex Twisthaler) ondansetron 4 mg disintegrating 4 mg PO Q8H #14 tabs 10/26/21 12/15/22 Rx tablet escitalopram oxalate 10 mg tablet 20 mg PO DAILY #180 tabs 11/18/21 12/15/22 Rx metformin 500 mg tablet 500 mg PO DAILY #90 tabs 06/16/22 12/15/22 Rx clonazepam 0.5 mg tablet 0.75 mg PO DAILY #45 tabs 12/21/22 Rx Allergies Allergy/AdvReac Type Severity Reaction Status Date / Time Penicillins Allergy Mild Unknown Verified 12/15/22 14:26 Exam Narrative: large tonsils H&P: Results Labs Labs: plan or tonsillectomy risks discussed including bleeding infection damage to surrounding structures postoperative bleeding through% chance. Need for further procedures. Damage to any structure of the clavicle myself, damage to any structure during the induction and remains anesthesia including vocal cord paralysis. Failure to resolve symptoms. We will do the adenoids any disease process because of not evaluation of adenoids by my partn
--- NOTE | 2022-12-21 12:44 | WPDANESEPPF ---
Anes - Initial Pre Proc Eval Procedure: Operation Date: 12/22/22 09:30 Proposed Procedures p Tonsillectomy - Robert Fink MD Date/Time: 12/21/22 12:44 Surgeon: Robert Fink MD Pre Op Diagnosis: chronic tonsillitis Patient Data Age: 32 Gender: F Height: 1.66 m Weight: 140.6 kg Allergies Allergy/AdvReac Type Severity Reaction Status Date / Time Penicillins Allergy Intermediate upset Verified 12/22/22 07:48 stomach Home Medications Medication Instructions Recorded Confirmed Type cetirizine 10 mg tablet 10 mg PO DAILY #90 tabs 07/31/19 12/22/22 Rx etonogestrel 68 mg subdermal 1 implant subdermal ONCE #1 ea 07/31/19 12/15/22 Rx implant (Nexplanon) albuterol sulfate 90 mcg/actuation 1 puff inhalation Q4H PRN 09/29/20 12/22/22 Rx aerosol inhaler (ProAir HFA) Shortness Of Breath #8.5 grams mometasone 220 mcg/actuation(60 220 mcg inhalation Q12H asthma #3 07/19/21 12/22/22 Rx doses) breath activated powder ea inhaler (Asmanex Twisthaler) ondansetron 4 mg disintegrating 4 mg PO Q8H #14 tabs 10/26/21 12/15/22 Rx tablet escitalopram oxalate 10 mg tablet 20 mg PO DAILY #180 tabs 11/18/21 12/22/22 Rx metformin 500 mg tablet 500 mg PO DAILY #90 tabs 06/16/22 12/22/22 Rx clonazepam 0.5 mg tablet 0.75 mg PO DAILY #45 tabs 12/21/22 12/22/22 Rx Patient hx anesthesia problems: none Family hx anesthesia problems: none Results Review: All pre-operative results and documents have been reviewed as part of the pre-operative evaluation. [facility] Past Medical History Medical History Acute infective tonsillitis Anemia Anxiety with depression Asthma BMI 50.0-59.9, adult Bronchitis Depression Encounter for removal and reinsertion of Nexplanon nexplanon removal / reinsertion 03/29/2022 Morbid obesity Nexplanon insertion 05/25/15 07/04/18 Nexplanon removal 07/04/18 Psychiatric pseudoseizure Seizures Surgical History Surgical History Closed right ankle fracture Surgical repair March 2020 H/O section 03/12/2015 arrest of dilation History of orthopedic surgery right leg Family History Family History Grandparent Diabetes mellitus Maternal Grandmother Thyroid disorder paternal grandmother Heart disease Acute myocardial infarction Father Hypertension Sibling Hypertension sister Mother Diabetes mellitus Other Breast cancer paternal aunt Acute myocardial infarction Heart disease Social History Social History Social History: Caffeine-daily Smoking status: Never smoker Alcohol intake: current Drinks per week: 1 Alcohol use details: social Substance use: current Substance use type: other Other substance usage details: EDIBLES TWICE A YEAR Lack of Transportation: No Lack of Food: Never True Current Housing: I Have Housing Concerned About Future Housing: No Difficulty Paying Gas/Electric Bills: No Difficulty Paying for Meds: No Currently Unemployed: No Education: High School Diploma/GED Difficulty w/ Childcare or Family Care: No Living arrangements: with family Additional living arrangements comments: Occupation/Education: unemployed Additional occupation/education comments: stay at home mom Gender identity (if verbalized by the patient): Female Sexual Orientation (if Verbalized by the Patient): Bisexual Spiritual care concerns: No Anes - Eval Final PreProcedure Day of Procedure 12/21/22 12:44 Patient weight: morbidly obese Heart: regular rate and rhythm Lungs: clear to auscultation Airway: Mallampati scale class 1 Neurological: alert and oriented Last oral intake: >/= 8 hours ASA classification: III Emergent: no Anesthetic plan: proceed Anesthesi
[2022-12-22] VITALS (8 sets, daily range): BP systolic 130–171; BP diastolic 87–114; PULSE 78–98; RESP 16–22; TEMP 36.1–36.7; O2SAT 95–100
--- NOTE | 2022-12-22 07:17 | WPDHPUPDATE1 ---
History and Physical Update Update Date/Time: 12/22/22 07:17 History and Physical has been reviewed, including an updated exam of the patient. There are NO changes in the patient's condition. Risks, benefits, and alternatives have been discussed and questions answered. Patient agrees to proceed with procedure.
[2022-12-22] MEDS: LACTATED RINGERS 1,000 ML 30 ML IV CONT ×2 (08:00→09:52)
[2022-12-22 08:09] LABS: Glucose Point of Care 136 mg/dl (65-105)
[2022-12-22] MEDS: ACETAMINOPHEN 500 MG TABLET 1000 MG PO (08:23)
[2022-12-22 08:50] LABS: Beta HCG Quantitative < 2.39 mIU/ML
[2022-12-22] MEDS: OXYMETAZOLINE HCL 0.05% NAS 15 ML BTL (*BKC) 1 SPRAY NASAL (09:41)
[2022-12-22] MEDS: fentaNYL CITRATE INJ (*CRX) 100 MCG/2 ML VIAL 25 MCG IV PUSH ×6 (10:12→10:51)
--- NOTE | 2022-12-22 10:13 | W.PM.PROC2 ---
Procedure Note - Detailed Date of Procedure 12/22/22 Pre-op Diagnosis chronic tonsillitis, adenoid hypertrophy Post-op Diagnosis Same Procedure Performed tonsillectomy adenoidectomy Surgeon Robert Fink MD Anesthesia General Indications see above Findings large adenoids about 3+ large tonsils about 3+. Bleeding when I inserted the red rubber catheter easily controlled with Afrin. Description of Procedure Patient identified consent verified. Patient brought to the operating room. Time-out performed. General anesthesia induced. Endotracheal tube secured. Patient prepped draped position procedure confirmed. Second time-out performed. McIvor mouth gag inserted to reveal tonsils described above. They were removed bilaterally in the extracapsular plane using Bovie electrocautery at a setting of 10 and 12. Any bleeding was controlled with suction Bovie electrocautery at a setting of 12. Following tonsillectomy, which was bilateral, the McIvor mouth gag was lowered for 30 seconds and reopened to reveal no bleeding. In between tonsils the McIvor mouth gag was also lowered to allow blood flow to return to the tongue. Red rubber catheters were then inserted transnasally suspending the soft palate anteriorly. Large adenoids. There was bleeding which I caused by inserting the red rubber catheter. This was easily controlled with the application of Afrin. Adenoid pad which was large and obstructive was then removed with Bovie suction electrocautery at a setting of 35. Bleeding was negligible to not bleeding following adenoidectomy. Red rubber catheters then removed McIvor mouth gag removed. Total blood loss about 5 cc. I performed all dictated portions of the procedure. Care the patient was given back to Anesthesiology. There were no complications. Take patient was taken to PACU. Of note the left tonsil slightly larger than the right and they were sent separately for pathologic analysis. Estimated Blood Loss 5 Drains No Packing No Pathology Yes Complications No immediate complications Condition Stable Disposition PACU [facility] Billing Surgery - Charge Forward: Surgery Billing
--- NOTE | 2022-12-22 10:45 | SUR.PHASEI ---
[address] triana of patient being hypertensive, no new orders, caused by all meds given in the or, plus pain
[2022-12-22] MEDS: oxyCODONE HCL (*CRX) 5 MG TAB IR PO (11:36)
[2022-12-22] MEDS: ONDANSETRON INJ 4 MG/2 ML VIAL IV PUSH (11:36)
== END 2022-12-22 12:15 | disposition home or self-care (01) ==
PROVIDERS: Anesthesiology; PCP Family Medicine; Visit Provider Otolaryngology
PROC: (CPT 42821; principal; 2022-12-22 09:30)
DX: J03.91 Acute recurrent tonsillitis, unspecified (principal); J35.03 Chronic tonsillitis and adenoiditis; J45.909 Unspecified asthma, uncomplicated; E66.01 Morbid (severe) obesity due to excess calories; Z68.43 Body mass index [BMI] 50.0-59.9, adult
CPT/HCPCS: 42821; 36415; 80053; 82728; 82948; 83036; 83540; 83550; 84702; 85025; 88304; 93005; A9270; J1100; J2250; J2405; J2704; J3010; J7120

== ENCOUNTER 2023-06-25 08:35 | Outpatient (CLI) | payer OTHER, MEDICARE, SELFPAY ==
[2023-06-25 19:05] LABS: Iron 39 ug/dL (37-170)
[2023-06-25 19:14] LABS: Percent Iron Saturation 14 % (20-50)
[2023-06-25 19:17] LABS: Basophils Absolute Auto 0.1 K/mm3 (0.0-0.1); Basophils Percent Auto 0.6 % (0.2-1.2); Eosinophils Absolute Auto 0.2 K/mm3 (0-0.3); Eosinophils Percent Auto 1.5 % (0-4.4); Hematocrit 38.6 % (37.0-47.0); Hemoglobin 11.2 g/dL (12.0-15.0); Immature Granulocyte Absolute 0.03 K/mm3 (0.00-0.031); Immature Granulocyte Percent A 0.3 % (0-0.5); Lymphocytes Absolute Auto 3.94 K/mm3 (0.9-3.2); Lymphocytes Percent Auto 35.3 % (18.3-44.2); Mean Corpuscular Volume 82.8 fl (80-100); Mean Platelet Volume 12.1 fl (7.4-10.4); Monocytes Absolute Auto 0.6 K/mm3 (0.1-0.6); Monocytes Percent Auto 5.6 % (2.6-8.5); Neutrophils Absolute Auto 6.3 K/mm3 (1.3-6.7); Neutrophils Percent Auto 56.7 % (45.5-73.1); Platelet Count Result 365 k/mm3 (150-375); Red Blood Count 4.66 M/mm3 (4.2-5.4); Red Cell Distribution Width 14.8 % (11.5-14.5); White Blood Count 11.2 K/mm3 (4.5-10.0)
[2023-06-25 19:29] LABS: Alanine Aminotransferase 20 U/L (6-35); Albumin Level 3.8 g/dL (3.5-5.1); Alkaline Phosphatase 129 U/L (38-126); Anion Gap 7 mmol/L (8-16); Aspartate Amino Transferase 50 U/L (14-36); Bilirubin,Total 0.5 mg/dL (0.2-1.3); Blood Urea Nitrogen 10 mg/dL (7-17); Calcium 8.9 mg/dL (8.4-10.2); Carbon Dioxide 29 mmol/L (22-30); Chloride 100 mmol/L (98-107); Cholesterol 185 mg/dL (0-200); Estimated Glomerular Filt Rate > 60; Glucose 177 mg/dL (65-110); HDL Direct 30 mg/dL; Potassium 3.8 mmol/L (3.4-5.0); Sodium 136 mmol/L (137-145); Triglycerides 129 mg/dL (<150)
[2023-06-25 19:41] LABS: LDL Cholesterol Direct 119 mg/dL
[2023-06-25 19:51] LABS: Hemoglobin A1C 9.5 % (<5.7)
[2023-06-25 20:44] LABS: Hypochromasia 1+ (NORMAL); Platelet Estimate Adequate (Adequate); Schistocytes None Seen (NORMAL)
[2023-06-25 20:45] LABS: Anisocytosis 1+ (NORMAL)
== END 2023-06-25 08:36 | disposition home or self-care (01) ==
PROVIDERS: PCP Family Medicine; Visit Provider Family Medicine
DX: Z13.220 Encounter for screening for lipoid disorders (principal); E11.9 Type 2 diabetes mellitus without complications; D50.9 Iron deficiency anemia, unspecified; Z13.228 Encounter for screening for other metabolic disorders; R53.83 Other fatigue; E55.9 Vitamin D deficiency, unspecified; Z13.29 Encounter for screening for other suspected endocrine disorder
CPT/HCPCS: 36415; 80053; 80061; 82728; 83036; 83540; 83550; 84443; 85025

== ENCOUNTER 2023-08-03 11:59 | Emergency (ER) | payer OTHER, MEDICARE, SELFPAY ==
[2023-08-03 12:00] VITALS: BP 166/105; PULSE 108; RESP 20; TEMP 36.3; O2SAT 100
--- NOTE | 2023-08-03 12:23 | ED.GENADULT ---
HPI - General Adult General Chief complaint: Ear Stated complaint: Ear Ache Time Seen by Provider: 08/03/23 12:10 Source: patient, RN notes reviewed and old records reviewed Mode of arrival: ambulatory Limitations: no limitations History of Present Illness HPI narrative: 33-year-old female presents to [facility] with complaint decreased energy, night sweats, left ear pain for 4 days. Discussed patient arrived of postnasal drainage warmth drainage and chills for 2 days. Patient endorses potential sick contacts last week. Patient history of anxiety, depression, [id number] diabetes, and autism. Patient cannot endorse what makes symptoms better or worse at this time. Patient able to tolerate fluids by mouth. Related Data Home Medications Medication Instructions Recorded Confirmed duloxetine 30 mg capsule,delayed 30 mg PO DAILY 06/22/23 06/22/23 release escitalopram oxalate 10 mg tablet 15 mg PO DAILY 06/22/23 06/22/23 Allergies Allergy/AdvReac Type Severity Reaction Status Date / Time Penicillins Allergy Intermediate upset Verified 06/22/23 14:30 stomach Review of Systems Review of Systems: All systems reviewed & are unremarkable except as noted in HPI and below Constitutional: Constitutional: Denies body ache(s), Denies chills, Reports fever(s) ( Subjective), Reports lethargy and Reports night sweats Eyes: Eyes: Reports no additional eye complaints ENT: Reports system reviewed and no additional complaints, except as documented and Reports otalgia ( left) Cardiovascular: Cardiovascular: Reports no additional cardiovascular complaints, Denies chest pain and Denies dyspnea Respiratory: Respiratory: Reports no additional respiratory complaints, Denies cough and Denies dyspnea Musculoskeletal: Musculoskeletal: Reports no additional musculoskeletal complaints Neurologic: Reports system reviewed and no additional complaints, except as documented Psychiatric: Psychiatric: Reports no additional psychiatric complaints [facility] Past Medical History Medical History Acute infective tonsillitis Anemia Anxiety with depression Asthma BMI 50.0-59.9, adult Bronchitis Depression Encounter for removal and reinsertion of Nexplanon nexplanon removal / reinsertion 03/29/2022 Insomnia Morbid obesity Nexplanon insertion 05/25/15 07/04/18 Nexplanon removal 07/04/18 Psychiatric pseudoseizure Seizures Surgical History Surgical History Closed right ankle fracture Surgical repair March 2020 H/O section 03/12/2015 arrest of dilation History of orthopedic surgery right leg History of tonsillectomy (12/22/22) Family History Family History Grandparent Diabetes mellitus Maternal Grandmother Thyroid disorder paternal grandmother Heart disease Acute myocardial infarction Father Hypertension Sibling Hypertension sister Mother Diabetes mellitus Acute myocardial infarction Other Breast cancer paternal aunt Acute myocardial infarction Heart disease Social History Social History Social History: Caffeine-daily Smoking status: Never smoker Second hand tobacco smoke exposure: No Alcohol intake: current Drinks per week: 2 Alcohol use details: social 3-4 per month Substance use: current Substance use type: marijuana and other Other substance usage details: EDIBLES TWICE A YEAR Do You Feel Safe in your Home?: Yes Lack of Transportation: No Lack of Food: Never True Current Housing: I Have Housing Concerned About Future Housing: No Difficulty Paying Gas/Electric Bills: No Difficulty Paying for Meds: No Currently Unemployed: No Education: High School Diploma/GED Difficulty w/ Childca
[2023-08-03 12:30] VITALS: BP 138/88
== END 2023-08-03 12:50 | disposition home or self-care (01) ==
PROVIDERS: Emergency Provider Nurse Practitioner Family; PCP Family Medicine
DX: J06.9 Acute upper respiratory infection, unspecified (principal); Z20.822 Contact with and (suspected) exposure to COVID-19; F84.0 Autistic disorder; F41.9 Anxiety disorder, unspecified; F32.A Depression, unspecified; E11.9 Type 2 diabetes mellitus without complications; J45.909 Unspecified asthma, uncomplicated; E66.01 Morbid (severe) obesity due to excess calories; Z68.43 Body mass index [BMI] 50.0-59.9, adult
CPT/HCPCS: 87426; 87804; 99213; G0463

== ENCOUNTER 2023-11-24 14:58 | Emergency (ER) | payer OTHER, MEDICARE, SELFPAY ==
[2023-11-24 15:10] VITALS: BP 152/103; PULSE 120; RESP 16; TEMP 36.7; O2SAT 100
--- NOTE | 2023-11-24 17:27 | ED.FEMALEGU ---
HPI - Female Genitourinary General Chief complaint: Vaginal Bleeding Stated complaint: vaginal bleeding Time Seen by Provider: 11/24/23 17:10 Source: patient Mode of arrival: ambulatory Limitations: no limitations History of Present Illness HPI Narrative: This is a 33-year-old female that presents to the emergency department for abnormal uterine bleeding. Reports she has a Nexplanon. She usually has light bleeding that is infrequent. She has currently been on her menstrual cycle for 2 weeks. She reports history of anemia. Reports heavy bleeding with clotting. Reports pelvic cramping. Denies fevers, vomiting, dysuria. Related Data Home Medications Medication Instructions Recorded Confirmed duloxetine 30 mg capsule,delayed 30 mg PO DAILY 06/22/23 11/23/23 release Allergies Allergy/AdvReac Type Severity Reaction Status Date / Time Penicillins Allergy Intermediate upset Verified 11/23/23 10:36 stomach Review of Systems Review of Systems: CONSTITUTIONAL: Denies fever GASTROINTESTINAL: Denies abdominal pain, nausea, vomiting GENITOURINARY: Denies dysuria All systems reviewed & are unremarkable except as noted in HPI and below PMFSH Past Medical History Medical History Acute infective tonsillitis Anemia Anxiety with depression Asthma BMI 50.0-59.9, adult Bronchitis Depression Encounter for removal and reinsertion of Nexplanon nexplanon removal / reinsertion 03/29/2022 Insomnia Morbid obesity Nexplanon insertion 05/25/15 07/04/18 Nexplanon removal 07/04/18 Psychiatric pseudoseizure Seizures Surgical History Surgical History Closed right ankle fracture Surgical repair March 2020 H/O section 03/12/2015 arrest of dilation History of orthopedic surgery right leg History of tonsillectomy (12/22/22) Family History Family History Grandparent Diabetes mellitus Maternal Grandmother Thyroid disorder paternal grandmother Heart disease Acute myocardial infarction Father Hypertension Sibling Hypertension sister Mother Diabetes mellitus Acute myocardial infarction Other Breast cancer paternal aunt Acute myocardial infarction Heart disease Social History Social History Social History: Caffeine-daily Smoking status: Never smoker Second hand tobacco smoke exposure: No Alcohol intake: current Drinks per week: 2 Alcohol use details: social 3-4 per month Substance use: current Substance use type: marijuana and other Other substance usage details: EDIBLES TWICE A YEAR Do You Feel Safe in your Home?: Yes Lack of Transportation: No Lack of Food: Never True Current Housing: I Have Housing Concerned About Future Housing: No Difficulty Paying Gas/Electric Bills: No Difficulty Paying for Meds: No Currently Unemployed: No Education: High School Diploma/GED Difficulty w/ Childcare or Family Care: No Living arrangements: with family Additional living arrangements comments: Occupation/Education: unemployed Additional occupation/education comments: stay at home mom Gender identity (if verbalized by the patient): Female Sexual Orientation (if Verbalized by the Patient): Bisexual Spiritual care concerns: No Exam Narrative: GENERAL: Well-appearing, well-nourished, and in no acute distress. HEAD: Normocephalic, atraumatic. EYES: EOMI. CHEST: Clear to auscultation. No respiratory distress. No wheezes rales or rhonchi HEART: Regular rate and rhythm. No murmur heard. Normal peripheral pulses. ABDOMEN: Soft, nontender, nondistended, normal active bowel sounds. EXTREMITIES: Normal range of motion. No edema. SKIN: Warm, dry, no rash. NEURO: No focal deficits. Al
--- NOTE | 2023-11-24 17:40 | PC.NURSE ---
Pt difficult stick. Awaiting for US IV access.
[2023-11-24 18:08] VITALS: BP 106/58; PULSE 107
[2023-11-24 18:10] VITALS: BP 127/93; PULSE 110
[2023-11-24 18:11] VITALS: BP 135/100; PULSE 120
[2023-11-24 20:30] LABS: Basophils Percent Auto 0.4 % (0.2-1.2); Eosinophils Absolute Auto 0.3 K/mm3 (0-0.3); Eosinophils Percent Auto 2.3 % (0-4.4); Hematocrit 36.6 % (37.0-47.0); Hemoglobin 11.6 g/dL (12.0-15.0); Immature Granulocyte Absolute 0.03 K/mm3 (0.00-0.031); Immature Granulocyte Percent A 0.3 % (0-0.5); Lymphocytes Absolute Auto 3.55 K/mm3 (0.9-3.2); Mean Corpuscular HGB Conc 31.7 g/dl (32-36); Mean Corpuscular Hemoglobin 24.6 pg (26-34); Mean Corpuscular Volume 77.7 fl (80-100); Monocytes Absolute Auto 0.6 K/mm3 (0.1-0.6); Neutrophils Absolute Auto 6.2 K/mm3 (1.3-6.7); Platelet Count Result 448 k/mm3 (150-375); Red Blood Count 4.71 M/mm3 (4.2-5.4); Red Cell Distribution Width 14.9 % (11.5-14.5); White Blood Count 10.8 K/mm3 (4.5-10.0)
[2023-11-24 20:41] LABS: Anion Gap 8 mmol/L (4-12); Blood Urea Nitrogen 11 mg/dL (7-17); Calcium 9.3 mg/dL (8.4-10.2); Carbon Dioxide 25 mmol/L (22-30); Chloride 105 mmol/L (98-107); Estimated CRCL calculation 168 ml/min; Estimated Glomerular Filt Rate > 60; Glucose 167 mg/dL (65-110); Potassium 3.9 mmol/L (3.4-5.0); Sodium 138 mmol/L (137-145)
[2023-11-24 20:44] LABS: Partial Thromboplastin Time 26.3 Seconds (22.3-36.8); Prothrombin Time 13.2 Seconds (11.1-14.7)
[2023-11-24 21:29] VITALS: BP 142/100; PULSE 104; RESP 15; O2SAT 100
[2023-11-24 22:33] VITALS: BP 142/102; PULSE 98; RESP 15; O2SAT 100
== END 2023-11-24 22:35 | disposition home or self-care (01) ==
PROVIDERS: Emergency Provider Physician Assistant; PCP Family Medicine
DX: N93.9 Abnormal uterine and vaginal bleeding, unspecified (principal); D64.9 Anemia, unspecified; J45.909 Unspecified asthma, uncomplicated; E66.01 Morbid (severe) obesity due to excess calories; Z68.43 Body mass index [BMI] 50.0-59.9, adult; F41.8 Other specified anxiety disorders; Z79.84 Long term (current) use of oral hypoglycemic drugs; Z79.899 Other long term (current) drug therapy
CPT/HCPCS: 36415; 80048; 81025; 85025; 85610; 85730; 99284

== ENCOUNTER 2023-11-26 15:26 | Outpatient (CLI) | payer OTHER, MEDICARE, SELFPAY ==
--- NOTE | ~2023-11-26 | US_ITS ---
EXAMINATION: US pelvic complete w TV DATE: 11/26/2023 15:52 INDICATION: Abnormal uterine and vaginal bleeding. TECHNIQUE: Multiple transabdominal and transvaginal sonographic images of the pelvis were obtained. COMPARISON: Ultrasound 11/11/2021, CT abdomen and pelvis 10/26/2021 FINDINGS: TRANSABDOMINAL ULTRASOUND: The uterus measures 8.0 x 4.6 x 3.8 cm. There is no free fluid in the pelvis. TRANSVAGINAL ULTRASOUND: The endometrial complex measures 3 mm in thickness. The right ovary measures 1.9 x 1.4 x 1.1 cm. The left ovary measures 2.6 x 2.6 x 2.2 cm. There is normal vascular flow in the ovaries. IMPRESSION: 1. Normal pelvis. Reviewed, dictated and finalized at location E. IMPRESSION: 1. Normal pelvis.
== END 2023-11-26 15:27 ==
PROVIDERS: PCP Family Medicine; Visit Provider Obstetrics & Gynecology
DX: N93.9 Abnormal uterine and vaginal bleeding, unspecified (principal)
CPT/HCPCS: 76830; 76856

== ENCOUNTER 2024-08-11 08:29 | Outpatient (CLI) | payer OTHER, MEDICARE, SELFPAY ==
--- NOTE | 2024-08-11 11:08 | WPDPFTINT ---
PFT Procedure Performed PFT Procedure Performed Spirometry with Pre/Post Bronchodilator Plethysmography (Lung Vol) Diffusing Cap (DLCO) Flow Vol Loop PFT Interpretation Lung volumes were measured with the body plethysmography method. The diminished expiratory reserve volume is related to obesity. The remaining lung volumes are unremarkable. Spirometry showed normal expiratory flow rates and a normal FEV1 to FVC ratio of 85%. Following administration of a bronchodilator there was no significant increase in expiratory flow rates. Lung diffusion capacity is within the normal range at 84% predicted. The flow-volume loop is unremarkable. Impression: Spirometry, lung volumes, and lung diffusion capacity all within the normal range.
== END 2024-08-11 08:30 | disposition home or self-care (01) ==
PROVIDERS: PCP Family Medicine; Visit Provider Nurse Practitioner Family
DX: J45.40 Moderate persistent asthma, uncomplicated (principal)
CPT/HCPCS: 94060; 94726; 94729

== ENCOUNTER 2024-08-21 07:52 | Outpatient (CLI) | payer MEDICARE, OTHER, SELFPAY ==
--- OUTSIDE RECORDS SUMMARY | 2024-08-21 07:58 | XMS_ITS | Clinical Summary ---
Author Organization [facility] Address [address] [place] [address] Care Team Providers Care Presales Engineer Name Role Phone Brian Dhillon MD Unavailable [phone] Ilai Delacruz MD Primary Care Provider [phone] Allergies Active Allergy Reactions Criticality Noted Date Comments Mushroom Hives,Itching,Swelling Medium 08/09/2009 Penicillins Itching,Nausea & Vomiting,Swelling Medium Medications loratadine (CLARITIN) 10 mg tablet Take 10 mg by mouth daily Active albuterol sulfate (PROAIR RESPICLICK) 90 mcg/actuation aerosol powdr breath activatedIndicat ions:Mild intermittent asthma without complication Inhale 2 puffs 4 (four) times a day as needed (wheezing) 3 each 3 9 Active Additional Information Patient not taking.Reported on 06/19/2019 ASMANEX HFA 100 mcg/actuation HFA aerosol inhalerIndicatio ns:Mild intermittent asthma without complication INHALE 1 PUFF BY MOUTH TWICE DAILY 1 Inhaler 3 9 Active albuterol HFA (PROVENTIL HFA,VENTOLIN HFA,PROAIR HFA) 90 mcg/actuation inhaler INHALE 2 PUFFS BY MOUTH EVERY 6 HOURS NEEDED FOR WHEEZING 18 g 0 Active Additional Information Patient not taking.Reported on 06/19/2019 clonazePAM (KlonoPIN) 0.5 mg tablet .25 in the am and .5 in the PM for anxiety. 2 Active escitalopram (LEXAPRO) 10 mg tablet 20 mg in the am 2 Active metFORMIN (GLUCOPHAGE) 500 mg tablet Take 500 mg by mouth daily with breakfast Active Active Problems Problem Noted Date Diagnosed Date Seizure 11/21/2021 Chronic idiopathic constipation 11/21/2018 Assessment & Plan (11/21/2018 5:29 PM CDT): YOU MAY TAKE BOTH MIRALAX AND A STOOL SOFTNER DAILY UNTIL NORMAL BOWEL MOVEMENTS ARE ACHIEVED. THEN, DISCONTINUE ONE OF THEM, USE THE OTHER ON A DAILY BASIS UNLESS THIN, WATERY STOOLS START TO DEVELOP. Then, you may stop using the supplements. Should you began skipping days having a bowel movement or develop hard stools again, repeat the above instructions. BRAND-NAME GENERIC NAME MIRALAX POLYETYLENE GLYCOL COLACE DOCUSATE SODIUM External hemorrhoids 11/21/2018 Assessment & Plan (11/21/2018 5:30 PM CDT): Currently asymptomatic. Obesity (BMI 30.0-34.9) 07/02/2018 Assessment & Plan (11/21/2018 5:31 PM CDT): Obesity is worsening. Discussed the patient's BMI. The BMI is above average; BMI management plan is completed. General weight loss/lifestyle modification strategies discussed (elicit support from others; identify saboteurs; non-food rewards, etc). Mild intermittent asthma without complication Assessment & Plan (11/21/2018 5:27 PM CDT): Asthma is improving with treatment. The patient is experiencing no daytime asthma symptoms. She is experiencing no nighttime asthma symptoms. Discussed monitoring symptoms and use of quick-relief medications and contacting us early in the course of exacerbations. Warning signs of respiratory distress were reviewed with the patient. Assessment & Plan (06/03/2018 11:02 AM CEMENTER MACHINE): Asthma is worsening. The patient is experiencing frequent daytime asthma symptoms. She is experiencing frequent nighttime asthma symptoms. Discussed monitoring symptoms and use of quick-relief medications and contacting us early in the course of exacerbations. Warning signs of respiratory distress were reviewed with the patient. Discussed medication dosage, use, side effects, and goals of treatment in detail. Hold maintenance inh until back at baseline. Pseudoseizure 05/21/2018 Overview (11/21/2018): Managed by Neurology-Dr. Dhillon Assessment & Plan (11/21/2018 5:30 PM CDT): Per neurologist. Assessment & Plan (05/21/2018 6:03 PM CEMENTER MACHINE): Patient admits that she currently has her Keppra medication. Referred to neurology for further eval/mgmt of seizure disorder. 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 Continue current treatment regimen. Regular aerobic exercise. Psychological condition will be reassessed at the next regular appointment. Sertraline increased from 50 mg to 100mg qd Assessment & Plan (05/21/2018 6:02 PM CEMENTER MACHINE): Psychological condition is improving with treatment. Continue current treatment regimen. Regular aerobic exercise. Psychological condition will be reassessed at the next regular appointment. Immunizations Immunization Administration Dates Next Due Flucelvax Influenza Quad 03/28/2019 Flucelvax Influenza Quad MDI 02/19/2015 Influenza, Quadrivalent, Spl it, Preservative Free, Intramuscular 05/21/2018 Influenza, Trivalent, High D ose, Split, Preservative Free, Intramuscular 04/10/2014 Influenza, Unspecified 03/28/2019,04/30/2017 Tdap 02/12/2015 Surgical History Surgery Date Site/Laterality Comments SECTION Medical History Medical History Date Comments Asthma Depression Seizures (HCC) Mild intermittent asthma with acute exacerbation 06/03/2018 Family History Medical History Relation Name Comments Hypertension Father Diabetes Mother Relation Name Status Comments Father Alive Mother Alive Social History Tobacco Use Types Packs/Day Years Used Date Smoking Tobacco: Never Smokeless Tobacco: Never Alcohol Use Standard Drinks/Week Comments Yes 0 (1 standard drink = 0.6 oz pur e alcohol) PHQ-2 Answer Date Recorded PHQ-2 Total Score (If total score is 3 or more points, staff should administer the PHQ-9) 0 11/21/2021 Personal Safety Answer Date Recorded Getting School Help Needed Not on file 08/05 Comments Unknown Sex and Gender Information Value Date Recorded Sex Assigned at Not on file Legal Sex Female 9:17 PM CEMENTER MACHINE Gender Identity Not on file Sexual Orientation Not on file Obstetrics History Last Filed Vital Signs Vital Sign Reading Time Taken Comments Blood Pressure 125/75 11/24/2021 11:51 PM CDT Pulse 86 11/24/2021 11:51 PM CDT Temperature 36.7 C (98.1 F) 11/24/2021 11:51 PM CDT Respiratory Rate 16 11/24/2021 11:51 PM CDT Oxygen Saturation 100% 11/24/2021 11:51 PM CDT Inhaled Oxygen Concentration - - Weight 140.6 kg (310 lb) 11/21/2021 12:30 PM CDT Height 165.1 cm (5' 5 ) 11/21/2021 12:30 PM CDT Body Mass Index 51.59 11/21/2021 12:30 PM CDT Plan of Treatment Health Maintenance Due Date Last Done Comments Cervical Cancer Screening 1992 Hepatitis C Screening 1992 Hepatitis B Screening 2010 Regular Well Visit/Exam 18-64 2010 Pneumococcal vaccine <65 (1 of 2 - PCV) 2011 Depression Screening 11/15/2022 11/15/2021, 11/21/2018, 06/03/2018, Additional history exists Influenza Vaccine (#1) 2024 , 03/28/2019, 05/21/2018, Additional history exists DTaP/Tdap/Td Vaccine (2 - Td or Tdap) 02/12/2025 02/12/2015 HPV Vaccines Aged Out No longer eligi ble based on patient's age to complete this topic Varicella Vaccines Discontinued Insurance AETNA [facility] HMO MEDICARE [facility] MEDICARE AETNA HEALTHCARE HMO [facility]ICARE [id number] AETNA MEDICARE AETNA MCR GOLD REF AETNA MCR GOLD REF AETNA [facility] CMR PPO Advance Directives For more information, please contact: [phone] * Full Code (Latest Code Status on File) Date Activated Date Inactivated Comments 11/21/2021 9:38 AM 11/25/2021 8:01 PM * Full Code Date Activated Date Inactivated Comments 02/04/2019 8:26 AM 02/09/2019 10:39 PM Care Teams Presales Engineer Relationship Specialty Start Date End Date Ilia Delacruz MD [address] [place] [address] PCP - General Internal Medicine 10/24/21 Brian Dhillon MD [address] [facility] [address] [place] [address] Consulting Physician Neurology 06/26/19
--- OUTSIDE RECORDS SUMMARY | 2024-08-21 07:58 | XMS_ITS | Referral Summary ---
Author Organization [facility] Address [address] [place] [address] Care Team Providers Care Iron Piler Name Role Phone Brian Dhillon MD Unavailable [phone] Ilia Delacruz MD Primary Care Provider [phone] Allergies Active Allergy Reactions Criticality Noted Date [...] patient. Assessment & Plan (06/03/2018 11:02 AM APPLE THINNER): Asthma is worsening. The patient is experiencing [...] neurologist. Assessment & Plan (05/21/2018 6:03 PM APPLE THINNER): Patient admits that she currently has her [...] qd Assessment & Plan (05/21/2018 6:02 PM APPLE THINNER): Psychological condition is improving with treatment. Continue current treatment regimen. Regular aerobic exercise. Psychological condition will be reassessed at the next regular appointment. Immunizations Immunization Administration Dates Next Due Flucelvax Influenza Quad 03/28/2019 Flucelvax Influenza Quad MDI 02/19/2015 Influenza, Quadrivalent, Spl it, Preservative Free, Intramuscular 05/21/2018 Influenza, Trivalent, High D ose, Split, Preservative Free, Intramuscular 04/10/2014 Influenza, Unspecified 03/28/2019,04/30/2017 Tdap 02/12/2015 Social History Tobacco Use Types Packs/Day Years [...] on file Legal Sex Female 9:17 PM APPLE THINNER Gender Identity Not on file Sexual Orientation Not on file Last Filed Vital Signs Vital Sign Reading [...] 11/21/2021 12:30 PM CDT Plan of Treatment Not on file Insurance [facility] MEDICARE [facility] AETNA MCR GOLD REF AETNA COVRAQUELY ASO CMR PPO Advance Directives For more information, please contact: [phone] * Full Code (Latest Code Status on File) Date Activated Date Inactivated Comments 11/21/2021 9:38 AM 11/25/2021 8:01 PM * Full Code Date Activated Date Inactivated Comments 02/04/2019 8:26 AM 02/09/2019 10:39 PM Care Teams Iron Piler Relationship Specialty Start Date End Date Ilia Delacruz MD [address] [place] [address] PCP - General Internal Medicine 10/24/21 Brian Dhillon MD [address] [place] [address] [place] [address] Consulting Physician Neurology 06/26/19
--- OUTSIDE RECORDS SUMMARY | 2024-08-21 07:58 | XMS_ITS | Patient Health Summary ---
Author Organization [facility] Address [address] [place] [address] Care Team Providers Care Mill Operator Helper Name Role Phone Lizz Rodgers MD Primary Care Provider [phone] Note [address] [facility],non-owned Affiliates and Associated Physician Practices is amultiple site organization consisting of ambulatory clinics and hospital sitesin [place], [place], [place] and [place]. This disclosure is being madepursuant to the Care Everywhere program and may not contain all information available regarding this patient. Last updated 18.[facility] Social History Tobacco Use Types Packs/Day Years Used Date Smoking Tobacco: Never Assessed Sex and Gender Information Value Date Recorded Sex Assigned at Not on file Gender Identity Not on file Sexual Orientation Not on file Procedures * LEVETIRACETAM LEVEL(Performed 04/05/2016) Performed for Generalized epilepsy (HCC) Results * (ABNORMAL) LEVETIRACETAM LEVEL (04/05/2016 5:39 PM CDT) Levetiracetam 4.4(L) 10.0 - 40.0 ug/mL 04/09/2016 10:05 PM CDT [facility] ([facility]) Blood BLOOD SPECIMEN / Unknown Lab Venipuncture / Unknown 04/05/2016 5:39 PM CDT 04/05/2016 6:02 PM CDT Narrative [facility] ([facility]) - 04/09/2016 10:05 PM CDT Performed at: [address] [place] [id number] Ethylbenzene Converter Operator: Ilia Ellis MD, Phone: [phone] Feliciano Wan MD LAB - THERAPEUTIC DR ESTRADA MONITORING ORDERABLES [facility] ([facility]) [address] [place] [address] Care Teams Mill Operator Helper Relationship Specialty Start Date End Date Lizz Rodgers MD [address] [place] [address] PCP - General Internal Medicine 04/05/16
--- OUTSIDE RECORDS SUMMARY | 2024-08-21 07:58 | XMS_ITS | Referral Summary ---
Author Organization [facility] Address [address] [place] [address] Care Team Providers Care Biology Specimen Technician Name Role Phone Lizz Rodgers MD Primary Care Provider [phone] Source Comments [facility],non-owned Affiliates and Associated Physician Practices is amultiple site organization consisting of ambulatory clinics and hospital sitesin [place] and [place]. This disclosure is being madepursuant to the Care Everywhere program and may not contain all information available regarding this patient. Last updated 18.[facility] Social History Tobacco Use Types Packs/Day Years Used Date Smoking Tobacco: Never Assessed Sex and Gender Information Value Date Recorded Sex Assigned at Not on file Gender Identity Not on file Sexual Orientation Not on file Plan of Treatment Not on file Care Teams Biology Specimen Technician Relationship Specialty Start Date End Date Lizz Rodgers MD [address] [place] [address] PCP - General Internal Medicine 04/05/16
--- OUTSIDE RECORDS SUMMARY | 2024-08-21 07:58 | XMS_ITS | Clinical Summary ---
Author Organization [facility] Address [address] [place] [address] Care Team Providers Care Decator Operator Name Role Phone Lizz Rodgers MD Primary Care Provider [phone] Source Comments [facility],non-[facility] Affiliates and Associated Physician Practices is amultiple site organization consisting of ambulatory clinics and hospital sitesin [place], [place], [place] and [place]. This disclosure is being madepursuant to the Care Everywhere program and may not contain all information available regarding this patient. Last updated 18.[facility] Social History Tobacco Use Types Packs/Day Years Used Date Smoking Tobacco: Never Assessed Sex and Gender Information Value Date Recorded Sex Assigned at Not on file Gender Identity Not on file Sexual Orientation Not on file Plan of Treatment Health Maintenance Due Date Last Done Comments PAP SMEAR 1992 HIV SCREENING 2007 HEPATITIS C SCREENING 03/03/2010 DTAP/TDAP/TD VACCINES (1 - Tdap) 2011 HEPATITIS B VACCINE (1 of 3 - 19+ 3-dose series) 2011 COVID-19 VACCINE ( - 2023-2 5 season) 2024 INFLUENZA VACCINE (#1) 2024 DEPRESSION SCREENING 06/11/2024 ZOSTER VACCINE (1 of 2) 2042 HIB VACCINE Aged Out No longer eligi ble based on patient's age to complete this topic HPV VACCINE Aged Out No longer eligi ble based on patient's age to complete this topic MENINGOCOCCAL (Group B) VACC INE SHARED DECISION-MAKING Aged Out No longer eligibl e based on patient's age to complete this topic MENINGOCOCCAL GROUPS A/C/Y/W VACCINE Aged Out No longer eligible b ased on patient's age to complete this topic PNEUMOCOCCAL VACCINE Aged Out No long er eligible based on patient's age to complete this topic Care Teams Decator Operator Relationship Specialty Start Date End Date Lizz Rodgers MD [address] [place] [address] PCP - General Internal Medicine 04/05/16
[2024-09-16 09:39] VITALS: BMI 50.9
--- NOTE | 2024-09-16 09:39 | WPDHOMESLEEP ---
Sleep Study - Home Unattended Date of Study: 08/21/24 Ordering Provider: Paul Jenkins APRN Interpreting Provider: Adia Fregoso, DO Home Sleep Study Type: Watch PAT Height: 1.66 m Weight: 141.067 kg Body Mass Index: 50.9 Neck Circumference (inches): 15.25 [place]: 11 Reason for Sleep Study Daytime hypersomnia Sleep History The patient is a 34-year-old female that had a sleep study ordered by the pulmonary group for evaluation of sleep apnea. The patient rarely awakens from sleep short of breath. She denies awakening at night with heartburn, belching or cough. She frequently snores but is never loud enough that others complain. She constantly has trouble sleeping when she has a cold. She rarely wakes up gasping for air throughout the night. She denies having breathing problems at night observed by herself or others. She frequently sweats excessively at night. She rarely has heart palpitations or irregular heartbeats during the night. She frequently falls asleep during the day but never while driving. She rarely experiences loss of muscle tone when extremely emotional. She denies having trouble at school or work due to sleepiness. She denies sleep paralysis. She constantly experiences vivid dreamlike scenes upon awakening or falling asleep. She frequently feels afraid of going to sleep. She rarely has nightmares. She frequently remembers her dreams. She frequently has thoughts racing through her mind. She frequently feels sad, depressed and anxious. She frequently has muscular tension. She frequently notices parts of her body jerk. She denies kicking during the night. She occasionally has crawling and aching feelings in her legs and occasionally has leg pain during the night. She denies grinding her teeth during sleep and denies awakening with morning jaw pain. She is frequently bothered by pain during the day and occasionally awakened by pain during the night. She occasionally wakes up feeling stiff in the morning. She frequently wakes up with sore or achy muscles. She constantly wakes up with pain in the neck, spine and other joints. She goes to bed at midnight on both weekdays and weekends. she wakes up once throughout the night at most to urinate is able to fall back asleep within 5 minutes. She wakes up between 7-10 a.m. on weekdays and between 10:00 a.m. to noon on the weekends. She will get 10 hours sleep occasionally her night. She currently lives with her her and child she denies consuming any caffeinated beverages within 2 hours of bedtime. She denies engaging in physical exercise before bedtime. She will read and watch television before falling asleep. She will take naps in the afternoon or the evening but they are not refreshing. She consumes 1 caffeinated beverage per day. She consumes 2 alcoholic beverages per week. She denies tobacco and recreational drug use. [facility] Past Medical History Medical History Excessive daytime sleepiness Insomnia Acute infective tonsillitis Encounter for removal and reinsertion of Nexplanon nexplanon removal / reinsertion 03/29/2022 Nexplanon removal 07/04/18 Nexplanon insertion 05/25/15 07/04/18 Bronchitis BMI 50.0-59.9, adult Anemia Morbid obesity Psychiatric pseudoseizure Anxiety with depression Seizures Depression Asthma Surgical History Surgical History History of tonsillectomy (12/22/22) History of orthopedic surgery right leg Closed right ankle fracture Surgical repair March 2020 H/O section 03/12/2015 arrest of dilation Family History Family History Grandparent Diabetes mellitus Maternal Grandmother Thyroid disorder paternal grandmother Heart disease Acute myocardial infarction Father Hypertension Hemophilia Sibling Hypertension sister Mother Diabetes mellitus Acute myocardial infarction Other Breast cancer paternal aunt Acute myocardial infarction Heart disease Social History Social History Social History: Caffeine-daily Smoking status: Never smoker Second hand tobacco smoke exposure: No Alcohol intake: current Drinks per week: 2 Alcohol use details: social 3-4 per month Substance use: current Substance use type: marijuana and other Other substance usage details: EDIBLES TWICE A YEAR Do You Feel Safe in your Home?: Yes Lack of Transportation: No Lack of Food: Never True Current Housing: I Have Housing Concerned About Future Housing: No Difficulty Paying Gas/Electric Bills: No Difficulty Paying for Meds: No Currently Unemployed: No Education: High School Diploma/GED Difficulty w/ Childcare or Family Care: No Living arrangements: with family Additional living arrangements comments: Occupation/Education: unemployed Additional occupation/education comments: stay at home mom Gender identity (if verbalized by the patient): Female Sexual Orientation (if Verbalized by the Patient): Bisexual Spiritual care concerns: No Medications Home Medications ?Medication ?Instructions ?Recorded ?Confirmed ?Type cetirizine 10 mg tablet 10 mg PO DAILY #90 tabs 07/31/19 07/18/24 Rx etonogestrel 68 mg subdermal 1 implant subdermal ONCE #1 ea 07/31/19 07/18/24 Rx implant (Nexplanon) metformin 500 mg tablet 500 mg PO BID #180 tabs 06/26/23 07/18/24 Rx clonazepam 0.5 mg tablet 0.75 mg (1.5 x 0.5 mg) PO DAILY 08/07/23 07/18/24 Rx #45 tabs albuterol sulfate 90 mcg/actuation 1 puff inhalation Q4H PRN 08/16/23 07/18/24 Rx aerosol inhaler (ProAir HFA) Shortness Of Breath #8.5 grams mometasone 200 mcg/actuation HFA 1 puff inhalation QHS #13 grams 01/11/24 07/18/24 Rx aerosol inhaler (Asmanex HFA) fluconazole 200 mg tablet 200 mg PO DAILY #1 tablet 02/19/24 07/18/24 Rx (Diflucan) duloxetine 60 mg capsule,delayed mg PO 05/23/24 07/18/24 History release ubrogepant 100 mg tablet (Ubrelvy) 100 mg PO ONCE PRN migraine 06/12/24 07/18/24 Rx headache #14 tabs Sleep Procedure The sleep study was completed using [employer] a technically adequate device with seven channels: peripheral arterial tone, actigraphy, body position, snore, respiratory movement, pulse oximetry, sleep staging, and heart rate. Prior to using the device, the patient received verbal and written instructions for its application and was provided with the [employer] phone number for additional telephonic instruction with 24-hour availability of qualified personnel to answer questions. The study was scored using CMS guidelines. Sleep Architecture The total recording time is 11 hrs, 35 min. The total sleep time is 7 hrs, 3 min. Sleep latency is 28 minutes. REM latency is 247 minutes. The patient had 22 episodes of waking. Sleep architecture shows 23.6% deep sleep, 60.8% light sleep, and (as % Total Sleep Time) showed NREM (Light 60.8%; Deep 23.6%), and a 15.6% stage REM. The patient spent 50.5% of total sleep time in the supine position. Sleep efficiency was 60.86. Respiratory Analysis The overall AHI (pAHI 4%:) is 6.4.The overall AHI (pAHI 3%:) is 14.4. The central AHI is 9.0. The AHI was 13.7 in NREM and 21.6 in REM sleep. The AHI was 20.3 in Supine and 8.5 in Non-supine sleep. Percent of Jeremy Green respirations is 0.0. Oximetry Data The oxygen desaturation index (OMAR 4%:) is 7.2. The mean saturation is 97%, and the lowest saturation is 86%. Time spent with saturation < 88% is 0.2 minutes. Snoring Profile Snoring average intensity is 41 dB. The patient snored above 45 decibels for 26.5 minutes, 6.3% of sleep time. Cardiac Profile The average pulse rate is 98 beats per minutes. The lowest pulse rate is 71 bpm. The highest pulse rate reported is 129 bpm. Atrial fibrillation was not detected. Premature beats occur 0.1 per minute. Assessment and Plan Assessment and Plan (1) JAMISON (obstructive sleep apnea): Code(s): G47.33 - Obstructive sleep apnea (adult) (pediatric) Status: Acute Assessment and Plan: The patient had an overall AHI of 6.4 (4% criteria) with desaturation down to 86%. This is consistent with mild sleep apnea. Due to the patient's anxiety, she qualifies for treatment. The patient had a central apnea index (3%) of 9.0 which is elevated (normal <5). Due to the elevated central apnea index, the patient is not an ideal candidate for AutoPAP. AutoPAP can increase the frequency and severity of central apneas. I recommend that the patient have a CPAP Titration study. The patient also needs an echocardiogram to rule out cardiogenic causes for an elevated central apnea index. Data The data obtained during this sleep study is adequate for interpretation. Certification This sleep study has been reviewed by a board certified sleep medicine physician.
== END 2024-08-27 16:21 | disposition home or self-care (01) ==
LOC: ANHCSM 07:54
PROVIDERS: Visit Provider Nurse Practitioner Family
DX: G47.19 Other hypersomnia (principal); G47.33 Obstructive sleep apnea (adult) (pediatric)
CPT/HCPCS: 95800

== ENCOUNTER 2024-10-31 08:22 | Outpatient (CLI) | payer OTHER, MEDICARE, SELFPAY ==
--- OUTSIDE RECORDS SUMMARY | 2024-10-31 08:26 | XMS_ITS | Referral Summary ---
Author Organization [facility] Address [address] [place] [address] Care Team Providers Care Forest Fire Equipment Operator Name Role Phone Brian Dhillon MD Unavailable [phone] Ilia Delacruz MD Primary Care Provider [phone] Allergies Active Allergy Reactions Criticality Noted Date [...] patient. Assessment & Plan (06/03/2018 11:02 AM MILLING SUPERVISOR): Asthma is worsening. The patient is experiencing [...] neurologist. Assessment & Plan (05/21/2018 6:03 PM MILLING SUPERVISOR): Patient admits that she currently has her [...] qd Assessment & Plan (05/21/2018 6:02 PM MILLING SUPERVISOR): Psychological condition is improving with treatment. Continue [...] on file Legal Sex Female 9:17 PM MILLING SUPERVISOR Gender Identity Not on file Sexual Orientation [...] 12:30 PM CDT Height 165.1 cm (5' 5) 11/21/2021 12:30 PM CDT Body Mass Index 51.59 11/21/2021 12:30 PM CDT Plan of Treatment Not on file Insurance [facility] Address: [address] [address] [place] [address] [facility] MEDICARE [facility] MED[facility]ARE [facility] A[facility]NA MEDICARE [facility] AETNA MCR GOLD REF [employer]ET[employer] CMR PPO Advance Directives For more information, please contact: [phone] * Full Code (Latest Code Status on File) Date Activated Date Inactivated Comments 11/21/2021 9:38 AM 11/25/2021 8:01 PM * Full Code Date Activated Date Inactivated Comments 02/04/2019 8:26 AM 02/09/2019 10:39 PM Care Teams Forest Fire Equipment Operator Relationship Specialty Start Date End Date Ilia Delacruz MD [address] [place] [address] PCP - General Internal Medicine 10/24/21 Brian Dhillon MD [address] [place] [address] [place] [address] Consulting Physician Neurology 06/26/19
--- OUTSIDE RECORDS SUMMARY | 2024-10-31 08:26 | XMS_ITS | Clinical Summary ---
Author Organization [facility] Address [address] [place] [address] Care Team Providers Care Certified Personal Finance Counselor Name Role Phone Brian Dhillon MD Unavailable [phone] Ilia Delacruz MD Primary Care Provider [phone] Allergies Active Allergy Reactions Criticality Noted Date [...] patient. Assessment & Plan (06/03/2018 11:02 AM RADIO MESSAGE ROUTER): Asthma is worsening. The patient is experiencing [...] neurologist. Assessment & Plan (05/21/2018 6:03 PM RADIO MESSAGE ROUTER): Patient admits that she currently has her [...] qd Assessment & Plan (05/21/2018 6:02 PM RADIO MESSAGE ROUTER): Psychological condition is improving with treatment. Continue [...] on file Legal Sex Female 9:17 PM RADIO MESSAGE ROUTER Gender Identity Not on file Sexual Orientation [...] 11/21/2018, 06/03/2018, Additional history exists Influenza Vaccine (Season Ended) 2025 03/28/2019, 03/28/2019, 05/21/2018, Additional history exists DTaP/Tdap/Td Vaccine (2 - Td or Tdap) 02/12/2025 02/12/2015 HPV Vaccines Aged Out No longer eligi ble based on patient's age to complete this topic Varicella Vaccines Discontinued Insurance [facility] MEDICARE [facility] MEDICARE [employer] HMO MEDICARE [employer] HMO AETNA MEDICARE [employer] MCR GOLD REF AETNA MCR GOLD REF [employer]ET[employer] [place] [employer] CMR PPO Advance Directives For more information, please contact: [phone] * Full Code (Latest Code Status on File) Date Activated Date Inactivated Comments 11/21/2021 9:38 AM 11/25/2021 8:01 PM * Full Code Date Activated Date Inactivated Comments 02/04/2019 8:26 AM 02/09/2019 10:39 PM Care Teams Certified Personal Finance Counselor Relationship Specialty Start Date End Date Ilia Delacruz MD [address] [place] [id number] PCP - General Internal Medicine 10/24/21 Brian Dhillon MD [address] [place] [address] Consulting Physician Neurology 06/26/19
--- OUTSIDE RECORDS SUMMARY | 2024-10-31 08:26 | XMS_ITS | Clinical Summary ---
Author Organization [facility] Address [address] [place] [address] Care Team Providers Care Residency Coordinator Name Role Phone Lizz Rodgers MD Primary Care Provider [phone] Source Comments [facility],non-[facility] Affiliates and Associated Physician Practices is amultiple site organization consisting of ambulatory clinics and hospital sitesin [place], [place], [place] and [place]. This disclosure is being madepursuant to the Care Everywhere program and may not contain all information available regarding this patient. Last updated 18.[facility] Social History Tobacco Use Types Packs/Day Years Used Date Smoking Tobacco: Never Assessed Comments Unknown Sex and Gender Information Value Date Recorded Sex Assigned at Not on file Legal Sex Female 5:26 PM CDT Gender Identity Not on file Sexual Orientation Not on file Plan of Treatment Health Maintenance Due Date Last Done Comments PAP SMEAR 1992 HIV SCREENING 2007 HEPATITIS C SCREENING 03/03/2010 DTAP/TDAP/TD VACCINES (1 - Tdap) 2011 HEPATITIS B VACCINE (1 of 3 - 19+ 3-dose series) 2011 COVID-19 VACCINE ( - 2023-2 5 season) 2024 DEPRESSION SCREENING 06/11/2024 INFLUENZA VACCINE (Season Ended) 2025 ZOSTER VACCINE (1 of 2) 2042 HIB [...] on patient's age to complete this topic Insurance [employer] AETNA Care Teams Residency Coordinator Relationship Specialty Start Date End Date Lizz Rodgers MD [address] [place] [address] PCP - General Internal Medicine 04/05/16
[2024-11-25 14:30] VITALS: BMI 51.7
--- NOTE | 2024-11-25 14:30 | P.SLEEP_ITS ---
Sleep Study Date of Study: 10/31/24 Ordering Provider: Paul Jenkins APRN Interpreting Physician: Adia Fregoso DO Sleep Study Type: CPAP Titration Height: 1.65 m Weight: 141.067 kg Body Mass Index: 51.7 Neck Circumference (inches): 15.25 [place]: 11 Reason for Sleep Study WatchPAT home sleep test on 08/21/2024 showed an overall AHI (4%) of 6.4. Central apnea index using 3% criteria was 9.0. Sleep History The patient is a 34-year-old female that had a sleep study ordered by the pulmonary group for evaluation of sleep apnea. The patient rarely awakens from sleep short of breath. She denies awakening at night with heartburn, belching or cough. She frequently snores but is never loud enough that others complain. She constantly has trouble sleeping when she has a cold. She rarely wakes up gasping for air throughout the night. She denies having breathing problems at night observed by herself or others. She frequently sweats excessively at night. She rarely has heart palpitations or irregular heartbeats during the night. She frequently falls asleep during the day but never while driving. She rarely experiences loss of muscle tone when extremely emotional. She denies having trouble at school or work due to sleepiness. She denies sleep paralysis. She constantly experiences vivid dreamlike scenes upon awakening or falling asleep. She frequently feels afraid of going to sleep. She rarely has nightmares. She frequently remembers her dreams. She frequently has thoughts racing through her mind. She frequently feels sad, depressed and anxious. She frequently has muscular tension. She frequently notices parts of her body jerk. She denies kicking during the night. She occasionally has crawling and aching feelings in her legs and occasionally has leg pain during the night. She denies grinding her teeth during sleep and denies awakening with morning jaw pain. She is frequently bothered by pain during the day and occasionally awakened by pain during the night. She occasionally wakes up feeling stiff in the morning. She frequently wakes up with sore or achy muscles. She constantly wakes up with pain in the neck, spine and other joints. She goes to bed at midnight on both weekdays and weekends. she wakes up once throughout the night at most to urinate is able to fall back asleep within 5 minutes. She wakes up between 7-10 a.m. on weekdays and between 10:00 a.m. to noon on the weekends. She will get 10 hours sleep occasionally her night. She currently lives with her her and child she denies consuming any caffeinated beverages within 2 hours of bedtime. She denies engaging in physical exercise before bedtime. She will read and watch television before falling asleep. She will take naps in the afternoon or the evening but they are not refreshing. She consumes 1 caffeinated beverage per day. She consumes 2 alcoholic beverages per week. She denies tobacco and recreational drug use. [facility] Past Medical History Medical History Type 2 diabetes mellitus with hyperglycemia Excessive daytime sleepiness Insomnia Encounter for removal and reinsertion of Nexplanon nexplanon removal / reinsertion 03/29/2022 Nexplanon removal 07/04/18 Nexplanon insertion 05/25/15 07/04/18 Anemia Morbid obesity Psychiatric pseudoseizure Anxiety with depression Depression Asthma Surgical History Surgical History History of tonsillectomy (12/22/22) History of orthopedic surgery right leg Closed right ankle fracture Surgical repair March 2020 H/O section 03/12/2015 arrest of dilation Family History Family History Grandparent Diabetes mellitus Maternal Grandmother Thyroid disorder paternal grandmother Heart disease Acute myocardial infarction Father Hypertension Hemophilia Sibling Hypertension sister Mother Diabetes mellitus Acute myocardial infarction Other Breast cancer paternal aunt Acute myocardial infarction Heart disease Social History Social History Social History: Caffeine-daily Smoking status: Never smoker Second hand tobacco smoke exposure: No Alcohol intake: current Drinks per week: 2 Alcohol use details: social 3-4 per month Substance use: current Substance use type: marijuana and other Other substance usage details: EDIBLES TWICE A YEAR Do You Feel Safe in your Home?: Yes Lack of Transportation: No Lack of Food: Never True Current Housing: I Have Housing Concerned About Future Housing: No Difficulty Paying Gas/Electric Bills: No Difficulty Paying for Meds: No Currently Unemployed: No Education: High School Diploma/GED Difficulty w/ Childcare or Family Care: No Living arrangements: with family Additional living arrangements comments: Occupation/Education: unemployed Additional occupation/education comments: stay at home mom Gender identity (if verbalized by the patient): Female Sexual Orientation (if Verbalized by the Patient): Bisexual Spiritual care concerns: No Medications Home Medications ?Medication ?Instructions ?Recorded ?Confirmed ?Type cetirizine 10 mg tablet 10 mg PO DAILY #90 tabs 07/31/19 11/12/24 Rx etonogestrel 68 mg subdermal 1 implant subdermal ONCE #1 ea 07/31/19 11/12/24 Rx implant (Nexplanon) albuterol sulfate 90 mcg/actuation 1 puff inhalation Q4H PRN 08/16/23 11/12/24 Rx aerosol inhaler (ProAir HFA) Shortness Of Breath #8.5 grams mometasone 200 mcg/actuation HFA 1 puff inhalation QHS #13 grams 01/11/24 11/12/24 Rx aerosol inhaler (Asmanex HFA) duloxetine 60 mg capsule,delayed mg PO 05/23/24 11/12/24 History release ubrogepant 100 mg tablet (Ubrelvy) 100 mg PO ONCE PRN migraine 06/12/24 11/12/24 Rx headache #14 tabs eszopiclone 2 mg tablet 2 mg PO ONCE #1 tablet 09/17/24 11/12/24 Rx metformin 500 mg tablet 500 mg PO BID #180 tabs 10/22/24 11/12/24 Rx Sleep Procedure A full night CPAP Titration using the [employer] [employer] multi-channel system recorded the standard physiologic parameters including EEG, EOG, submentalis EMG, anterior tibialis EMG, EKG, body position, nasal and oral airflow using nasal pressure sensor and thermistor.? Respiratory parameters of chest and abdominal movements were recorded with Respiratory Inductance Plethysmography belts. Oxygen saturation was recorded by pulse oximetry. Video monitoring was also performed. Sleep stages, periodic limb movements, and EEG arousals were scored in 30 second epochs according to the criteria of the AASM Scoring Manual. The Apnea-Hypopnea Index was calculated using CMS guidelines for definition of hypopnea with 4% O2 desaturations while scoring respiratory events. Sleep Architecture The total recording time was 516.7 minutes.? The total sleep time was 464.5 minutes. Sleep latency was 9.3 minutes. REM latency was 176.0 minutes. Sleep efficiency was 89.9%. The patient had 41 awakenings for an awakening index of 5.3. Wake after Sleep Onset time was 43.0 minutes. The patient spent 58.0 minutes, 12.5% of total sleep time in Stage N1. The patient spent 329.0 minutes, 70.8% in Stage N2. The patient spent 50.0 minutes, 10.8% in Stage N3. The patient spent 27.5 minutes, 5.9% in Stage REM. Respiratory Analysis The patient had 6 hypopneas and 2 mixed apneas for an overall Apnea Hypopnea Index of 1.0 events per hour. The REM Apnea Hypopnea Index was 4.4. The NREM Apnea Hypopnea Index was 0.8. The patient had a Central Apnea Hypopnea Index of 0. There was no evidence of Jeremy-Green Respirations. The patient was started on CPAP 5 cm H2O and titrated to CPAP 9 cm H2O due to mixed apneas and hypopneas. The patient was able to fall asleep starting on CPAP 5 cm H2O. The patient was able to achieve REM sleep starting on CPAP 5 cm H2O. The patient was able to achieve a residual AHI less than 5 with both NREM and REM sleep on 7 cm H2O. On CPAP 7 cm H2O, the patient spent 123.5 minutes in NREM and 21 minutes in REM with 1 mixed apnea and 3 hypopneas, resulting in an AHI of 1.7. The patient had a sleep efficiency of 88.9% on this pressure setting. Arousals There were 217 total arousals for an arousal index of 28.0. There were 208 spontaneous arousals for an index of 26.9. ?There was 1 arousal due to a respiratory event for an index of 0.1. There were 2 arousals due to periodic limb movements for an index of 0.3.? There were 6 arousals due to isolated limb movements for an index of 0.8. Periodic Limb Movements The patient had 14 isolated limb movements with an index of 1.8. The patient had 17 periodic limb movements with index of 2.2. Patient had a total of 31 limb movements with a total limb movement index of 4.0. Oximetry Data The patient had an average oxygen saturation of 95.5% in sleep with a minimum oxygen saturation of 92.0% and a maximum oxygen saturation of 99.0%. The patient had 16 oxygen desaturations that were 4% or greater resulting in an Oxygen Desaturation Index of 2.1.? The patient spent 0 minutes of total sleep time with an oxygen saturation below 88%. Snoring Profile Snoring was not present throughout the study. Cardiac Profile The EKG showed normal sinus rhythm. Sinus tachycardia (HR > 90 bpm) was present throughout the majority of the study. The patient had an average pulse rate of 95.6 bpm with a minimum pulse rate of 81.0 bpm and a maximum pulse rate of 113.0 bpm EEG Profile No signs of seizure activity seen. Assessment and Plan Assessment and Plan (1) JAMISON (obstructive sleep apnea): Code(s): G47.33 - Obstructive sleep apnea (adult) (pediatric) Status: Acute Assessment and Plan: The patient was started on CPAP 5 cm H2O and titrated to CPAP 9 cm H2O due to mixed apneas and hypopneas. We were able to find a pressure setting that resolved the patient's sleep apnea. I recommend that the patient be prescribed CPAP 7 cm H2O without EPR, size SW Resmed N30 nasal mask, CPAP filters/tubing and heated humidity. This should be used with all episodes of sleep.? Compliance should be reviewed within 31-90 days of starting therapy for usage greater than 4 hours per night greater than 70% of the nights. The patient should be asked about symptoms such as?excessive daytime sleepiness, quality of sleep, decreased nocturia, increased?mental functioning such as memory, mood, and concentration. Data The data obtained during this sleep study is adequate for interpretation. Certification This sleep study has been reviewed by a board certified sleep medicine physician.
== END 2024-11-01 06:22 | disposition home or self-care (01) ==
LOC: ANHCSM 08:24
PROVIDERS: PCP Family Medicine; Visit Provider Nurse Practitioner Family
DX: G47.33 Obstructive sleep apnea (adult) (pediatric) (principal)
CPT/HCPCS: 95811

== ENCOUNTER 2024-11-27 10:46 | Outpatient (CLI) | payer OTHER, MEDICARE, SELFPAY ==
--- OUTSIDE RECORDS SUMMARY | 2024-11-27 11:34 | XMS_ITS | Clinical Summary ---
Author Organization [facility] Address [address] [place] [address] Care Team Providers Care Director Sales Training Name Role Phone Lizz Rodgers MD Primary Care Provider [phone] Source Comments [facility],non-kindred hospital Affiliates and Associated Physician Practices is amultiple site organization consisting of ambulatory clinics and hospital sitesin [place], [place], [place] and [place]. This disclosure is being madepursuant to the Care Everywhere program and may not contain all information available regarding this patient. Last updated 18.[facility] Social History Tobacco Use Types Packs/Day Years Used Date Smoking Tobacco: Never Assessed Comments Unknown Sex and Gender Information Value Date Recorded Sex Assigned at Not on file Legal Sex Female 5:26 PM CDT Gender Identity Not on file Sexual Orientation Not on file Plan of Treatment Health Maintenance Due Date Last Done Comments HIV SCREENING 2007 HEPATITIS C SCREENING 03/03/2010 DTAP/TDAP/TD VACCINES (1 - Tdap) 2011 HEPATITIS B VACCINE (1 of 3 - 19+ 3-dose series) 2011 PAP SMEAR 2013 COVID-19 VACCINE ( - 2023-2 5 season) [...] this topic Insurance [employer]M [employer] Care Teams Director Sales Training Relationship Specialty Start Date End Date Lizz Rodgers MD [address] [place] [address] PCP - General Internal Medicine 04/05/16
--- OUTSIDE RECORDS SUMMARY | 2024-11-27 11:35 | XMS_ITS | Clinical Summary ---
Author Organization [facility] Address [address] [place] [address] Care Team Providers Care Railroad Car Letterer Name Role Phone Brian Dhillon MD Unavailable [phone] Ilia Delacruz MD Primary Care Provider [phone] Allergies Active Allergy Reactions Criticality Noted Date [...] patient. Assessment & Plan (06/03/2018 11:02 AM FIELD CARE MANAGER): Asthma is worsening. The patient is experiencing [...] neurologist. Assessment & Plan (05/21/2018 6:03 PM FIELD CARE MANAGER): Patient admits that she currently has her [...] qd Assessment & Plan (05/21/2018 6:02 PM FIELD CARE MANAGER): Psychological condition is improving with treatment. Continue [...] on file Legal Sex Female 9:17 PM FIELD CARE MANAGER Gender Identity Not on file Sexual Orientation [...] Plan of Treatment Not on file Insurance [facility] MEDICARE [facility] MEDICARE AETNA [facility] AETNA MEDICARE AETNA [facility] AETNA MCR GOLD REF AETNA [place] [facility] CMR PPO Advance Directives For more information, please contact: [phone] * Full Code (Latest Code Status on File) Date Activated Date Inactivated Comments 11/21/2021 9:38 AM 11/25/2021 8:01 PM * Full Code Date Activated Date Inactivated Comments 02/04/2019 8:26 AM 02/09/2019 10:39 PM Care Teams Railroad Car Letterer Relationship Specialty Start Date End Date Ilia Delacruz MD [address] [place] [address] PCP - General Internal Medicine 10/24/21 Brian Dhillon MD [address] [place] [address] Consulting Physician Neurology 06/26/19
--- OUTSIDE RECORDS SUMMARY | 2024-11-27 11:35 | XMS_ITS | Referral Summary ---
Author Organization [facility] Address [address] [place] [address] Care Team Providers Care Handicrafts Teacher Name Role Phone Brian Dhillon MD Unavailable [phone] Ilia Delacruz MD Primary Care Provider [phone] Allergies Active Allergy Reactions Criticality Noted Date [...] patient. Assessment & Plan (06/03/2018 11:02 AM PHYSICIAN OFFICE ASSISTANT): Asthma is worsening. The patient is experiencing [...] neurologist. Assessment & Plan (05/21/2018 6:03 PM PHYSICIAN OFFICE ASSISTANT): Patient admits that she currently has her [...] qd Assessment & Plan (05/21/2018 6:02 PM PHYSICIAN OFFICE ASSISTANT): Psychological condition is improving with treatment. Continue [...] on file Legal Sex Female 9:17 PM PHYSICIAN OFFICE ASSISTANT Gender Identity Not on file Sexual Orientation [...] Treatment Not on file Insurance [facility] MEDICARE [facility] A[facility] MEDICARE [facility] AETNA MCR GOLD REF AETNA [place] [facility] CMR PPO Advance Directives For more information, please contact: [phone] * Full Code (Latest Code Status on File) Date Activated Date Inactivated Comments 11/21/2021 9:38 AM 11/25/2021 8:01 PM * Full Code Date Activated Date Inactivated Comments 02/04/2019 8:26 AM 02/09/2019 10:39 PM Care Teams Handicrafts Teacher Relationship Specialty Start Date End Date Ilia Delacruz MD [address] [place] [address] PCP - General Internal Medicine 10/24/21 Brian Dhillon MD [address] [place] [address] [address] [place] [address] Consulting Physician Neurology 06/26/19
[2024-11-27 19:38] LABS: Basophils Percent Auto 0.5 % (0.2-1.2); Eosinophils Absolute Auto 0.2 K/mm3 (0-0.3); Eosinophils Percent Auto 1.8 % (0-4.4); Hematocrit 36.5 % (37.0-47.0); Hemoglobin 10.8 g/dL (12.0-15.0); Immature Granulocyte Absolute 0.02 K/mm3 (0.00-0.031); Immature Granulocyte Percent A 0.2 % (0-0.5); Lymphocytes Absolute Auto 3.01 K/mm3 (0.9-3.2); Lymphocytes Percent Auto 33.9 % (18.3-44.2); Mean Corpuscular HGB Conc 29.6 g/dl (32-36); Mean Corpuscular Hemoglobin 21.9 pg (26-34); Mean Corpuscular Volume 73.9 fl (80-100); Mean Platelet Volume 11.7 fl (7.4-10.4); Monocytes Absolute Auto 0.5 K/mm3 (0.1-0.6); Monocytes Percent Auto 6.1 % (2.6-8.5); Neutrophils Absolute Auto 5.1 K/mm3 (1.3-6.7); Neutrophils Percent Auto 57.5 % (45.5-73.1); Platelet Count Result 446 k/mm3 (150-375); Red Blood Count 4.94 M/mm3 (4.2-5.4); Red Cell Distribution Width 16.6 % (11.5-14.5); White Blood Count 8.9 K/mm3 (4.5-10.0)
[2024-11-27 20:04] LABS: Alanine Aminotransferase 19 U/L (6-35); Albumin Level 3.9 g/dL (3.5-5.1); Alkaline Phosphatase 132 U/L (38-126); Anion Gap 10 mmol/L (4-12); Aspartate Amino Transferase 30 U/L (14-36); Bilirubin,Total 0.3 mg/dL (0.2-1.3); Blood Urea Nitrogen 7 mg/dL (7-17); Calcium 9.2 mg/dL (8.4-10.2); Carbon Dioxide 27 mmol/L (22-30); Chloride 99 mmol/L (98-107); Cholesterol 239 mg/dL (0-200); Estimated Glomerular Filt Rate > 60; Glucose 220 mg/dL (65-110); HDL Direct 37 mg/dL; Potassium 3.8 mmol/L (3.4-5.0); Sodium 136 mmol/L (137-145); Total Protein 7.6 g/dL (6.3-8.2); Triglycerides 264 mg/dL (<150)
[2024-11-27 20:16] LABS: LDL Cholesterol Direct 132 mg/dL
[2024-11-27 20:30] LABS: Iron 38 ug/dL (37-170)
[2024-11-27 20:40] LABS: Percent Iron Saturation 10 % (20-50)
[2024-11-27 20:50] LABS: Anisocytosis 1+; Hypochromasia 1+; Platelet Estimate Increased (Adequate); Schistocytes None Seen
[2024-11-27 21:18] LABS: Hepatitis C Virus Antibody Negative (Negative)
[2024-11-27 21:32] LABS: Hemoglobin A1C 10.7 % (<5.7)
== END 2024-11-27 10:47 | disposition home or self-care (01) ==
PROVIDERS: PCP Family Medicine; Visit Provider Family Medicine
DX: D50.9 Iron deficiency anemia, unspecified (principal); E11.65 Type 2 diabetes mellitus with hyperglycemia; F41.8 Other specified anxiety disorders; R56.9 Unspecified convulsions; Z11.59 Encounter for screening for other viral diseases
CPT/HCPCS: 36415; 80053; 80061; 82728; 83036; 83540; 83550; 84443; 85025; 86803

== ENCOUNTER 2025-02-26 09:50 | Outpatient (CLI) | payer OTHER, MEDICARE, SELFPAY ==
--- OUTSIDE RECORDS SUMMARY | 2025-02-26 09:51 | XMS_ITS | Clinical Summary ---
Author Organization [facility] Address [address] [place] [address] Care Team Providers Care Electrical Assemblies Supervisor Name Role Phone Lizz Rodgers MD Primary Care Provider [phone] Source Comments [facility],non-owned Affiliates and Associated Physician Practices is amultiple site organization consisting of ambulatory clinics and hospital sitesin [place], [place], [place] and [place]. This disclosure is being madepursuant to the Care Everywhere program and may not contain all informatio navailable regarding this patient. Last updated 18.[facility] Social History Tobacco Use Types Packs/Day Years [...] 19+ 3-dose series) 2011 PAP SMEAR 2013 HPV VACCINE (1 - 3-dose SCDM series) 2019 DEPRESSION SCREENING 06/11/2024 COVID-19 VACCINE ( - 2023-2 5 season) 2025 INFLUENZA VACCINE (#1) 2025 ZOSTER VACCINE (1 of 2) 2042 [...] this topic Insurance [employer]ETNA Care Teams Electrical Assemblies Supervisor Relationship Specialty Start Date End Date Lizz Rodgers MD [address] [place] [address] PCP - General Internal Medicine 04/05/16
--- OUTSIDE RECORDS SUMMARY | 2025-02-26 09:51 | XMS_ITS | Clinical Summary ---
Author Organization [facility] Address [address] [place] [address] Care Team Providers Care Movie Theater Usher Name Role Phone Brian Dhillon MD Unavailable [phone] Ilia Delacruz MD Primary Care Provider [phone] Allergies Active Allergy Reactions Criticality Noted Date [...] patient. Assessment & Plan (06/03/2018 11:02 AM ASSEMBLER CORNCOB PIPES): Asthma is worsening. The patient is experiencing [...] neurologist. Assessment & Plan (05/21/2018 6:03 PM ASSEMBLER CORNCOB PIPES): Patient admits that she currently has her [...] qd Assessment & Plan (05/21/2018 6:02 PM ASSEMBLER CORNCOB PIPES): Psychological condition is improving with treatment. Continue [...] on file Legal Sex Female 9:17 PM ASSEMBLER CORNCOB PIPES Gender Identity Not on file Sexual Orientation [...] Plan of Treatment Not on file Insurance [facility] MEDICARE [facility] MEDICARE AETNA [facility] AETNA MEDICARE AETNA [facility] AETNA MCR GOLD REF AETNA [place] [facility] CMR PPO Advance Directives For more information, please contact: [phone] * Full Code (Latest Code Status on File) Date Activated Date Inactivated Comments 11/21/2021 9:38 AM 11/25/2021 8:01 PM * Full Code Date Activated Date Inactivated Comments 02/04/2019 8:26 AM 02/09/2019 10:39 PM Care Teams Movie Theater Usher Relationship Specialty Start Date End Date Ilia Delacruz MD [address] [place] [address] PCP - General Internal Medicine 10/24/21 Brian Dhillon MD [address] [facility] [address] [address] [place] [address] Consulting Physician Neurology 06/26/19
--- OUTSIDE RECORDS SUMMARY | 2025-02-26 10:21 | XMS_ITS | Clinical Summary ---
Author Organization [facility] Address [address] [place] [address] Care Team Providers Care Facility Coordinator Name Role Phone Lizz Rodgers MD Primary Care Provider [phone] Source Comments [facility],non-owned Affiliates and Associated Physician Practices is amultiple site organization consisting of ambulatory clinics and hospital sitesin [place], [place], [place] and [place]. This disclosure is being madepursuant to the Care Everywhere program and may not contain all informatio navailable regarding this patient. Last updated 18.[facility] Social History Tobacco Use Types Packs/Day Years [...] this topic Insurance [employer]ET[employer] Care Teams Facility Coordinator Relationship Specialty Start Date End Date Lizz Rodgers MD [address] [place] [address] PCP - General Internal Medicine 04/05/16
--- OUTSIDE RECORDS SUMMARY | 2025-02-26 10:21 | XMS_ITS | Clinical Summary ---
Author Organization [facility] Address [address] [place] [address] Care Team Providers Care Insurance Verifier Name Role Phone Brian Dhillon MD Unavailable [phone] Ilia Delacruz MD Primary Care Provider [phone] Allergies Active Allergy Reactions Criticality Noted Date [...] patient. Assessment & Plan (06/03/2018 11:02 AM HEAD ATHLETIC TRAINER): Asthma is worsening. The patient is experiencing [...] neurologist. Assessment & Plan (05/21/2018 6:03 PM HEAD ATHLETIC TRAINER): Patient admits that she currently has her [...] qd Assessment & Plan (05/21/2018 6:02 PM HEAD ATHLETIC TRAINER): Psychological condition is improving with treatment. Continue [...] on file Legal Sex Female 9:17 PM HEAD ATHLETIC TRAINER Gender Identity Not on file Sexual Orientation [...] Plan of Treatment Not on file Insurance [facility] MED[facility] MEDICARE [facility] MED[facility]ARE [facility] MEDICARE AETNA [facility] AETNA MCR GOLD REF AETNA [place] CMR PPO Advance Directives For more information, please contact: [phone] * Full Code (Latest Code Status on File) Date Activated Date Inactivated Comments 11/21/2021 9:38 AM 11/25/2021 8:01 PM * Full Code Date Activated Date Inactivated Comments 02/04/2019 8:26 AM 02/09/2019 10:39 PM Care Teams Insurance Verifier Relationship Specialty Start Date End Date Ilia Delacruz MD [address] [place] [address] PCP - General Internal Medicine 10/24/21 Brian Dhillon MD [address] [place] [address] Consulting Physician Neurology 06/26/19
[2025-02-26 11:13] LABS: Hematocrit 33.9 % (37.0-47.0); Hemoglobin 9.9 g/dL (12.0-15.0); Immature Granulocyte Percent A 0.5 % (0-0.5); Lymphocytes Absolute Auto 2.21 K/mm3 (0.9-3.2); Mean Corpuscular HGB Conc 29.2 g/dl (32-36); Mean Corpuscular Hemoglobin 21.6 pg (26-34); Mean Corpuscular Volume 73.9 fl (80-100); Nucleated Red Blood Cells Absolute Auto 0.000 K/mm3 (0.0-0.012); Nucleated Red Blood Cells Perc 0.0 % (0.0-0.2); Platelet Count Result 502 k/mm3 (150-375); Red Blood Count 4.59 M/mm3 (4.2-5.4); White Blood Count 10.2 K/mm3 (4.5-10.0)
[2025-02-26 11:23] LABS: Hemoglobin A1C 9.6 % (<5.7)
[2025-02-26 11:32] LABS: Hypochromasia 1+; Iron 34 ug/dL (37-170); Microcytosis 1+ (NORMAL)
[2025-02-26 11:33] LABS: Schistocytes None Seen
[2025-02-26 11:39] LABS: Alanine Aminotransferase 27 U/L (6-35); Albumin Level 3.9 g/dL (3.5-5.1); Alkaline Phosphatase 140 U/L (38-126); Anion Gap 11 mmol/L (4-12); Aspartate Amino Transferase 36 U/L (14-36); Bilirubin,Total 0.2 mg/dL (0.2-1.3); Blood Urea Nitrogen 8 mg/dL (7-17); Calcium 9.2 mg/dL (8.4-10.2); Carbon Dioxide 26 mmol/L (22-30); Chloride 99 mmol/L (98-107); Estimated Glomerular Filt Rate > 60; Glucose 264 mg/dL (65-110); Potassium 3.6 mmol/L (3.4-5.0); Sodium 136 mmol/L (137-145); Total Protein 7.8 g/dL (6.3-8.2)
[2025-02-26 11:41] LABS: Percent Iron Saturation 9 % (20-50)
[2025-02-26 12:04] LABS: Thyroid Stimulating Hormone Reflex 0.957 uIU/mL (0.465-4.68)
[2025-02-26 12:08] LABS: Ferritin 15.30 ng/mL (6.24-137)
== END 2025-02-26 09:51 | disposition home or self-care (01) ==
PROVIDERS: PCP Family Medicine; Visit Provider Family Medicine
DX: R00.2 Palpitations (principal); D50.9 Iron deficiency anemia, unspecified; E11.65 Type 2 diabetes mellitus with hyperglycemia
CPT/HCPCS: 36415; 80053; 82728; 83036; 83540; 83550; 84443; 85025; 85380

== ENCOUNTER 2025-04-16 09:12 | Outpatient (CLI) | payer OTHER, MEDICARE, SELFPAY ==
--- NOTE | 2025-04-16 09:30 | ECHO_ITS ---
Patient Info Name: Dante Macias Age: 35 years : 1990 Gender: Female Ht: 65 in Wt: 280 lbs BSA: 2.49 m2 HR: 90 bpm BP: 151 / 111 mmHg Technical Quality: Good Exam Date: 04/16/2025 9:38 AM Patient Status: O Admit Date: 04/16/2025 Exam Type: CA echo dop color flow w con Complete two-dimensional, color flow and Doppler transthoracic echocardiogram is performed with contrast to opacify the left ventricle and to improve the deliniation of the left ventricle endocardial borders. Charge Coordinator: Evelyn Doe Attending Provider: Alcides Reddy Contrast/Agitated Saline Contrast/Ag. Saline: Definity Amount: 2.00 ml Site Condition: IV removed, Site dressing applied and No extravasation Summary 1. Definity contrast administered improved wall motion interpretation. 2. Left ventricular chamber dimension is normal. 3. Left ventricular systolic function is normal, estimated at 60-65. 4. The left ventricular diastolic function is grade I diastolic dysfunction. 5. E/e' 8 is minimally elevated. 6. Left atrial chamber dimension is mildly enlarged. 7. There is trace tricuspid valve regurgitation. Left Ventricle E/e' 8 is minimally elevated. Left ventricular chamber dimension is normal. Left ventricular systolic function is normal, estimated at 60-65. The left ventricular diastolic function is grade I diastolic dysfunction. Definity contrast administered improved wall motion interpretation. Right Ventricle Right ventricular chamber dimension is normal. Right ventricular systolic function is normal and with normal TAPSE 2.0 cm. Left Atria Left atrial chamber dimension is mildly enlarged. Right Atria Right atrial chamber dimension is normal. Aortic Valve The aortic valve is trileaflet. There is no aortic valve stenosis. There is no aortic valve regurgitation. Pulmonic Valve There is no pulmonic regurgitation. Mitral Valve There is no mitral valve stenosis. There is no mitral valve regurgitation. Tricuspid Valve There is trace tricuspid valve regurgitation. RVSP is not measured due to an inadequate TR jet. Pericardium/Pleural There is no pericardial effusion. Inferior Vena Cava Normal inferior vena cava with >50% collapse upon inspiration consistent with normal right atrial pressure, 5 mmHg. Aorta The aortic root size at the sinus of Valsalva is normal. Left Ventricular Outflow Tract Name Value Normal LVOT 2D LVOT Diameter 2.0 cm LVOT Doppler LVOT Peak Velocity 111 cm/s LVOT Peak Gradient 5 mmHg LVOT Mean Gradient 3 mmHg LVOT VTI 26 cm LVOT Stroke Volume 78 ml LVOT CO 6.9 l/min LVOT CI 2.8 l/min/m2 Pulmonic Valve Name Value Normal RVOT Doppler RVOT Peak Velocity 67 cm/s RVOT Peak Gradient 2 mmHg PV Doppler PV Peak Velocity 97 cm/s PV Peak Gradient 4 mmHg Mitral Valve Name Value Normal MV Diastolic Function MV E Peak Velocity 84 cm/s MV A Peak Velocity 100 cm/s MV E/A 0.8 MV Decel Time (PW) 109 ms MV Annular TDI MV E/e' (Septal) 10.4 MV E/e' (Lateral) 7.8 MV E/e' (Average) 9.1 Tricuspid Valve Name Value Normal Estimated PAP/RSVP RA Pressure 5 mmHg <=5 Aortic Valve Name Value Normal AV Doppler AV Peak Velocity 135 cm/s AV Peak Gradient 7 mmHg AV Area (Cont Eq Brett) 2.5 cm2 AV DI (Brett) 0.82 AV Regurgitation 2D LVOT Area 3.0 cm2 Ventricles Name Value Normal LV Dimensions 2D/MM IVS Diastolic Thickness (2D) 0.9 cm 0.6-1.0 LVID Diastole (2D) 5.3 cm 3.8-5.2 LVIW Diastolic Thickness (2D) 1.1 cm 0.6-0.9 LVID Systole (2D) 3.5 cm 2.2-3.5 LVOT Diameter 2.0 cm LV Mass (2D Cubed) 190.02 g 67.00-162.00 LV Mass Index (2D Cubed) 76 g/m2 43-95 Relative Wall Thickness (2D) 0.40 <=0.42 LV Fractional Shortening/Ejection Fraction 2D/MM LV Fractional Shortening (2D) 33 % 27-45 LV EF (2D Teichholz) 61 % LV Diastolic Volume (4C MOD) 132 ml LV EF (4C MOD) 66 % LV Diastolic Volume (2C MOD) 149 ml LV EF (2C MOD) 56 % LV Diastolic Volume (BP MOD) 141 ml 46-106 LV Diastolic Volume Index (BP MOD) 57 ml/m2 29-61 LV Systolic Volume (BP MOD) 56 ml 14-42 LV Systolic Volume Index (BP MOD) 22 ml/m2 8-24 LV EF (BP MOD) 61 % 54-74 LV Diastolic Length (4C) 9.0 cm LV Systolic Length (4C) 6.8 cm LV Stroke Volume (4C MOD) 86 ml Atria Name Value Normal LA Dimensions LA Volume (4C A-L) 54 ml LA Volume (BP A-L) 58 ml RA Dimensions RA Systolic Major [place] Length (4C) 5.7 cm 2.2-2.8 RA Area (4C) 15.1 cm2 <=18.0 Report Signatures
[2025-04-16] MEDS: PERFLUTREN LIPID MICROSPHERES 1.5 ML VIAL DILUTED TO 10 ML TOTAL VOLUME IV PUSH (11:52)
--- NOTE | 2025-04-16 11:53 | IVDEFINITY ---
Prior to administration of IV Definity the patient was educated on the risks and benefits of the imaging enhancing agent including potential adverse side effects. The patient verbalized understanding. Allergies were verified. No exclusion criteria were identified and at least one of the following inclusion criteria were met: 1) physician request, 2) patient technically difficult to image (per the [place] [employer] Echocardi[employer] guidelines of two or more segments not discernable within the apical view), or 3) questionable left ventricular function. ?
--- OUTSIDE RECORDS SUMMARY | 2025-04-16 17:53 | XMS_ITS | Clinical Summary ---
Author Organization [facility] Address [address] [place] [address] Care Team Providers Care Superior Court Clerk Name Role Phone Brian Dhillon MD Unavailable [phone] Ilia Delacruz MD Primary Care Provider [phone] Allergies Active Allergy Reactions Criticality Noted Date [...] patient. Assessment & Plan (06/03/2018 11:02 AM ENGINEERING TEAM SUPERVISOR): Asthma is worsening. The patient is [...] neurologist. Assessment & Plan (05/21/2018 6:03 PM ENGINEERING TEAM SUPERVISOR): Patient admits that she currently has [...] qd Assessment & Plan (05/21/2018 6:02 PM ENGINEERING TEAM SUPERVISOR): Psychological condition is improving with treatment. [...] on file Legal Sex Female 9:17 PM ENGINEERING TEAM SUPERVISOR Gender Identity Not on file Sexual [...] Plan of Treatment Not on file Insurance [facility] MEDICARE AETNA [facility] AETNA MEDICARE AETNA [facility] AETNA MCR GOLD REF AETNA [place] [facility] C[facility] PPO Advance Directives For more information, please contact: [phone] * Full Code (Latest Code Status on File) Date Activated Date Inactivated Comments 11/21/2021 9:38 AM 11/25/2021 8:01 PM * Full Code Date Activated Date Inactivated Comments 02/04/2019 8:26 AM 02/09/2019 10:[address] Clerk Relationship Specialty Start Date End Date Ilia Delacruz MD [address] [place] [address] PCP - General Internal Medicine 10/24/21 Brian Dhillon MD [address] [place] [id number] Consulting Physician Neurology 06/26/19
--- OUTSIDE RECORDS SUMMARY | 2025-04-16 17:53 | XMS_ITS | Clinical Summary ---
Author Organization [facility] Address [address] [place] [address] Care Team Providers Care Buyer Agent Name Role Phone Lizz Rodgers MD Primary Care Provider [phone] Source Comments [facility],non-[facility] Affiliates and Associated Physician Practices is amultiple site organization consisting of ambulatory clinics and hospital sitesin [place], [place], [place] and [place]. This disclosure is being madepursuant to the Care Everywhere program and may not contain all information available regarding this patient. Last updated 18.[facility] Social History Tobacco Use Types [...] age to complete this topic Insurance [facility] Address: [address] [address] AETNA Care Teams Buyer Agent Relationship Specialty Start Date End Date Lizz Rodgers MD [address] [place] [address] PCP - General Internal Medicine 04/05/16
--- NOTE | 2025-04-24 15:18 | WPDHOLTEREM ---
Holter/Event Monitor Holter/Event Monitor Date of procedure: 04/16/25 Holter/Event Procedure: 3-7 Day Holter Monitor Indications: Palpitations Conclusion: 1. 3 days holter monitor on 04/16/25. 2. Underlying rhythm is sinus rhythm. HR range 72-181 bpm; average HR 104 bpm. HR at 181 bpm was on 25/12/24 at 4:36 pm. 3. There are rare premature supraventricular complexes. No supraventricular tachycardia. 4. There are rare premature ventricular complexes. No ventricular tachycardia. 5. No significant pauses greater than 3 seconds. 6. No symptoms available for correlation.
== END 2025-04-16 09:13 | disposition home or self-care (01) ==
LOC: ANHCARD 09:13
PROVIDERS: PCP Family Medicine; Visit Provider Family Medicine
DX: R93.1 Abnormal findings on diagnostic imaging of heart and coronary circulation (principal); G47.31 Primary central sleep apnea; R00.2 Palpitations
CPT/HCPCS: 93242; C8929; Q9957

== ENCOUNTER 2025-04-16 11:30 | Outpatient (CLI) | payer OTHER, MEDICARE, SELFPAY ==
[2025-04-16 12:00] LABS: Hematocrit 34.1 % (37.0-47.0); Hemoglobin 10.1 g/dL (12.0-15.0); Immature Granulocyte Percent A 0.2 % (0-0.5); Lymphocytes Absolute Auto 2.87 K/mm3 (0.9-3.2); Mean Corpuscular HGB Conc 29.6 g/dl (32-36); Mean Corpuscular Hemoglobin 21.8 pg (26-34); Mean Corpuscular Volume 73.5 fl (80-100); Nucleated Red Blood Cells Absolute Auto 0.000 K/mm3 (0.0-0.012); Nucleated Red Blood Cells Perc 0.0 % (0.0-0.2); Platelet Count Result 459 k/mm3 (150-375); Red Blood Count 4.64 M/mm3 (4.2-5.4); White Blood Count 9.2 K/mm3 (4.5-10.0)
[2025-04-16 12:08] LABS: Schistocytes None Seen
[2025-04-16 12:10] LABS: Anisocytosis 1+; Hypochromasia 1+
[2025-04-16 14:33] LABS: Iron 50 ug/dL (37-170)
[2025-04-16 14:43] LABS: Percent Iron Saturation 16 % (20-50)
[2025-04-16 15:15] LABS: Ferritin 15.70 ng/mL (6.24-137)
--- OUTSIDE RECORDS SUMMARY | 2025-04-16 19:13 | XMS_ITS | Clinical Summary ---
[facility] Organization [facility] Address [address] [place] [address] Care Team Providers Care Engineering Inspection Assistant Name Role Phone Brian Dhillon MD Unavailable [phone] Ilia Delacruz MD Primary Care Provider [phone] Allergies Active Allergy Reactions Criticality Noted Date [...] patient. Assessment & Plan (06/03/2018 11:02 AM LATEX FASHIONS DESIGNER): Asthma is worsening. The patient is experiencing [...] neurologist. Assessment & Plan (05/21/2018 6:03 PM LATEX FASHIONS DESIGNER): Patient admits that she currently has her [...] qd Assessment & Plan (05/21/2018 6:02 PM LATEX FASHIONS DESIGNER): Psychological condition is improving with treatment. Continue [...] on file Legal Sex Female 9:17 PM LATEX FASHIONS DESIGNER Gender Identity Not on file Sexual Orientation [...] Plan of Treatment Not on file Insurance [facility] MEDICARE [facility]NA [facility] MEDICARE AETNA [facility] AETNA MCR GOLD REF AETNA [place] [facility] CMR PPO Advance Directives For more information, please contact: [phone] * Full Code (Latest Code Status on File) Date Activated Date Inactivated Comments 11/21/2021 9:38 AM 11/25/2021 8:01 PM * Full Code Date Activated Date Inactivated Comments 02/04/2019 8:26 AM 02/09/2019 10:39 PM Care Teams Engineering Inspection Assistant Relationship Specialty Start Date End Date Ilia Delacruz MD [address] [place] [address] PCP - General Internal Medicine 10/24/21 Brian Dhillon MD [address] [place] [id number] Consulting Physician Neurology 06/26/19
--- OUTSIDE RECORDS SUMMARY | 2025-04-16 19:13 | XMS_ITS | Clinical Summary ---
Author Organization [facility] Address [address] [place] [address] Care Team Providers Care Admitting Coordinator Name Role Phone Lizz Rodgers MD Primary Care Provider [phone] Source Comments [facility],non-[facility] Affiliates and Associated Physician Practices is amultiple site organization consisting of ambulatory clinics and hospital sitesin [place], [place], [place] and [place]. This disclosure is being madepursuant to the Care Everywhere program and may not contain all information available regarding this patient. Last updated 18.[facility] Social History Tobacco Use Types Packs/Day [...] this topic Insurance [employer] Care Teams Admitting Coordinator Relationship Specialty Start Date End Date Lizz Rodgers MD [address] [place] [address] PCP - General Internal Medicine 04/05/16
== END 2025-04-16 11:31 | disposition home or self-care (01) ==
LOC: ANHLAB 11:32
PROVIDERS: PCP Family Medicine; Visit Provider Family Medicine
DX: D50.9 Iron deficiency anemia, unspecified (principal)
CPT/HCPCS: 36415; 82728; 83540; 83550; 85025